=== PATIENT | female | born 1960 | race Caucasian/White ===

== ENCOUNTER → 2020-08-10 11:42 | Outpatient (BNVA) | payer OTHER, SELFPAY | PROVIDERS: Family Provider Nurse Practitioner; Visit Provider Specialist | DX: G43.709 Chronic migraine without aura, not intractable, without status migrainosus (principal) | CPT/HCPCS: 99204 ==

== ENCOUNTER 2020-08-10 13:16 | Outpatient (CLI) | payer OTHER, SELFPAY ==
[2020-08-10 14:14] LABS: C Reactive Protein 2.1 mg/L (0.0-4.9)
[2020-08-10 15:12] LABS: Erythrocyte Sedimentation Rate 40 mm/hr (0-15)
== END 2020-08-10 13:17 | disposition home or self-care (01) ==
LOC: LAB 13:19
PROVIDERS: Family Provider Nurse Practitioner; Visit Provider Specialist
DX: G43.709 Chronic migraine without aura, not intractable, without status migrainosus (principal)
CPT/HCPCS: 85651; 86140

== ENCOUNTER → 2020-09-05 18:31 | Outpatient (BNVA) | payer OTHER, SELFPAY | PROVIDERS: Family Provider Nurse Practitioner; Visit Provider Surgery | DX: G43.709 Chronic migraine without aura, not intractable, without status migrainosus (principal) | CPT/HCPCS: 87635 ==

== ENCOUNTER 2020-09-11 07:13 | Day surgery (SDC) | payer OTHER, SELFPAY ==
[2020-09-08 16:36] VITALS: BMI 30.6
[2020-09-11 07:34] VITALS: BP 161/113; PULSE 88; RESP 20; TEMP 36.8; O2SAT 96
--- NOTE | 2020-09-11 07:49 | W.PM.OPSUD ---
Surgery/Procedure H&P Update DATE OF PROCEDURE: September 11, 2020 DATE H&P PERFORMED: 09/04/20 H&P UPDATE INFORMATION: I have reviewed H&P completed within last 30 days, I have examined patient prior to procedure and No changes to prior documentation PREOP DIAGNOSIS: Temporal arteritis PLANNED PROCEDURE: Operation Date: 09/11/20 08:50 Proposed Procedures p Temporal Artery Biopsy 52961 G43.709(Left) - Wilian Arredondo MD
[2020-09-11] MEDS: sodium chloride 0.9% 1,000 ML 30 ML IV (07:55)
[2020-09-11 08:09] VITALS: BP 151/86; PULSE 78; RESP 18; O2SAT 94
--- NOTE | 2020-09-11 08:49 | ANES.PREANE2 ---
Pre-Anesthetic Assessment Pre-Anesthetic Assessment: Height/Weight: Height 1.64 m Weight 82.1 kg Temp Pulse Resp BP Pulse Ox 98.3 F 78 18 151/86 94 09/11/20 07:34 09/11/20 08:09 09/11/20 08:09 09/11/20 08:09 09/11/20 08:09 Preop Diagnosis: Temporal arteritis Proposed Procedure: Operation Date: 09/11/20 08:50 Proposed Procedures p Temporal Artery Biopsy 33858 G43.709(Left) - Wilian Arredondo MD Was Beta Lisa taken within 24 hours: N/A Last intake: Intake Last Liquid Date 09/10/20 Last Liquid Time 20:00 Last Solid Date 09/10/20 Last Solid Time 20:00 Social: Social History: No alcohol and No tobacco Comment: h/o smoking Exam: Pre-Anes Outpt Exam: alert, oriented x 3, clear to auscultation bilaterally and regular rate & rhythm Airway: Submandibular: WNL Cervical ROM: WNL MP: 2 Dentition: Partials Pulmonary: Pulmonary: COPD CV/HEM: CV/HEM: HTN Comments: Poorly controlled HTN : : None reported Hepatic: Hepatic: None reported GI: GI: None reported Metabolic: Metabolic: Morbid obesity Musc/skel: Musc/skel: None reported Neuropsych: Neuropsych: MENDOZA Anesthetic Plan: ASA status: 3 Anesthesia: MAC Risk of > 500 ml blood loss (7ml/kg in children): No Meds/Allergies Current Medications: Current Medications Generic Name Dose Route Start Last Admin Trade Name Freq PRN Reason Stop Dose Admin Sodium Chloride 1,000 mls @ 30 ml s/hr 09/11/20 07:30 09/11/20 07:55 Sodium Chloride 0.9% IV 09/12/20 07:29 30 mls/hr .Q24H BREANA Administration PFSH Anesthesia PFSH: Medical History GERD (gastroesophageal reflux disease) Hypertension Surgical History H/O abdominoplasty H/O colonoscopy 2017 H/O esophagogastroduodenoscopy yrs ago H/O lumpectomy left breast History of appendectomy History of mandibular surgery Hx of tubal ligation Family History Mother Bleeding disorder hemophillia CAD (coronary artery disease) Father Cancer pancreatic Other Hypertension Denies family history of Anesthesia complication Social History Smoking and tobacco status: never smoked Alcohol intake: never Household members: family Marital status: Single Current occupational status: disabled History of recent travel: No Data Anesthesia Cardiac Studies: No Data to Display
[2020-09-11] MEDS: lidocaine 1% INJ 20 mL INJECTION (09:58)
[2020-09-11 10:15] VITALS: BP 149/75; PULSE 81; RESP 16; TEMP 36.1; O2SAT 97
[2020-09-11 11:00] VITALS: BP 150/96; PULSE 70; RESP 18; TEMP 36.2; O2SAT 97
--- NOTE | 2020-09-11 11:35 | ANE.PACU2 ---
Inpatient post-anesthesia follow up: Airway intact: Yes Vital signs: Temperature 97.2 F Pulse Rate 70 Respiratory Rate 18 Blood Pressure 150/96 Pulse Oximetry 97 Oxygen Delivery Me thod Room Air Oxygen Flow Rate Fraction of Inspir ed Oxygen Hydration adequate: Yes Nausea and vomiting: No Pain level: 1 Mental status: Baseline
--- NOTE | 2020-09-11 13:05 | PM.OP ---
Operative Report Date of procedure: September 11, 2020 Pre-op Diagnosis: Left temporal headache with visual disturbances Post-op diagnosis: same Procedure Done: Left superficial temporal artery biopsy Specimens removed/disposition: Left superficial temporal artery Surgeon: Wilian Arredondo Anesthesia: MAC Condition: stable Disposition: PACU Procedure: The patient was taken to the operating room and the left temporal artery was marked using a Doppler and the hair overlying the markings were clipped. 5 mL of 1% lidocaine with 0.5% Marcaine was infiltrated around this area. Using a 15 blade the skin and subcutaneous tissue was divided until the temporoparietal fascia was identified. The temporoparietal fascia was opened using iris scissors and about a 3 cm segment of temporal artery was skeletonized. Small vascular clips were applied proximally and distally and the artery was divided and sent to pathology. Hemostasis ensured, subcutis tissue approximate using running 3-0 Vicryl suture and skin was closed using running subcuticular 4-0 Monocryl suture and surgical glue.
== END 2020-09-11 11:20 | disposition home or self-care (01) ==
PROVIDERS: Visit Provider Surgery
PROC: (CPT 37609; principal; 2020-09-11 08:50)
DX: G43.709 Chronic migraine without aura, not intractable, without status migrainosus (principal); J44.9 Chronic obstructive pulmonary disease, unspecified; I10 Essential (primary) hypertension; E66.01 Morbid (severe) obesity due to excess calories; Z68.30 Body mass index [BMI] 30.0-30.9, adult; K21.9 Gastro-esophageal reflux disease without esophagitis
CPT/HCPCS: 37609; 12345; J2250; J2405; J2704; J3010; J3490; J7030

== ENCOUNTER 2021-05-30 13:30 | Emergency (ER) | payer OTHER, SELFPAY ==
--- NOTE | 2021-05-30 13:37 | XR_ITS ---
WS: [id number] Portable AP upright chest, 05/30/2021 Clinical Data: chest pain Comparison: None. Findings: No nodules, masses or effusions are seen. The heart is normal. The pulmonary vascularity is not increased. No pneumonia or pneumothorax is seen. Dental implants are noted in the mandible. XR/XR chest 1V portable [id number] Impression: Negative chest.
--- NOTE | 2021-05-30 13:37 | ECG_ITS ---
[facility] Test Date: 2021-05-30 Pat Name: Annie Oreilly Department: Room: Gender: Female Prompt Care Rn: : 1960 Requested By: Roselyn Randhawa Order Number: [id number] Gemini MD: Ashley Sawyer M.D. Measurements Intervals [place] Rate: 91 P: 15 [place]: 156 QRS: 15 QRSD: 84 T: -1 QT: 359 QTc: 442 Interpretive Statements SINUS RHYTHM NONSPECIFIC ST & T-WAVE ABNORMALITY Compared to ECG 05/30/2021 15:03:18 No significant changes Electronically Signed On 05-31-2021 8:57:14 CDT by Ashley Sawyer M.D. [id number]
[2021-05-30 15:11] VITALS: PULSE 90; RESP 20; TEMP 36.7; O2SAT 97
[2021-05-30 15:15] VITALS: BP 130/92; PULSE 92; RESP 18; TEMP 37; O2SAT 99
--- NOTE | 2021-05-30 15:37 | ECG_ITS ---
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 Measurements Intervals [place] Rate: 87 P: 1 [place]: 159 QRS: 12 QRSD: 85 T: -9 QT: 352 QTc: 425 Interpretive Statements SINUS RHYTHM NONSPECIFIC T-WAVE ABNORMALITY No previous ECG available for comparison Electronically Signed On 05-31-2021 9:30:12 CDT by Ashley Sawyer M.D. [email or web address].[employer]/store/NU/[id number] f
--- NOTE | 2021-05-30 17:25 | W.ED.CHESTPA ---
HPI - Chest Pain General: Chief Complaint: Chest Pain Stated Complaint: CP, CAME FROM BAM INFUSION Time Seen by Provider: 05/30/21 17:25 PFSH ED PFSH: Medical History GERD (gastroesophageal reflux disease) Hypertension Surgical History (Updated 09/11/20 @ 09:08 by Wilian Arredondo MD) H/O abdominoplasty H/O colonoscopy 2017 H/O esophagogastroduodenoscopy yrs ago H/O lumpectomy left breast History of appendectomy History of mandibular surgery History of temporal artery biopsy (09/11/20) left Hx of tubal ligation Family History Mother Bleeding disorder hemophillia CAD (coronary artery disease) Father Cancer pancreatic Other Hypertension Denies family history of Anesthesia complication Social History Smoking and tobacco status: never smoked Alcohol intake: never Household members: family Marital status: Single Current occupational status: disabled History of recent travel: No Course Vital Signs: Vital signs: Vital Signs Temperature 98.1 F 05/30/21 15:11 Pulse Rate 90 05/30/21 15:11 Respiratory Rate 20 H 05/30/21 15:11 Pulse Oximetry 97 05/30/21 15:11 Discharge Plan Discharge Prescriptions: No Action topiramate [Topamax] 100 mg tablet 100 mg PO DAILY Qty: 90 RF: 0 omeprazole 20 mg capsule,delayed release(DR/EC) 20 mg PO DAILY RF: 0 alendronate 10 mg tablet 10 mg PO DAILY RF: 0 benztropine 2 mg tablet 2 mg PO BID RF: 0 docusate sodium 50 mg capsule 50 mg PO BID RF: 0 olanzapine [Zyprexa] 20 mg tablet 20 mg PO DAILY RF: 0 atorvastatin 40 mg tablet 20 mg PO DAILY RF: 0 ondansetron HCl 4 mg tablet See Rx Instructions .ROUTE .COMPLEX RF: 0 losartan 25 mg tablet 25 mg PO DAILY RF: 0 paroxetine HCl [Paxil] 40 mg tablet 40 mg PO DAILY RF: 0 Coding Level of Care Code ED Assistant Property Manager for Halle Ibrahim
[2021-05-30 17:45] VITALS: BP 130/92; PULSE 93; RESP 19; O2SAT 95
[2021-05-30 18:00] VITALS: BP 130/92; PULSE 92; RESP 19; O2SAT 95
--- NOTE | 2021-05-30 18:18 | W.ED.CHESTPA ---
HPI - Chest Pain General: Chief Complaint: Chest Pain Stated Complaint: CP, CAME FROM BAM INFUSION Time Seen by Provider: 05/30/21 17:25 Source: patient Mode of arrival: ambulatory Limitations: no limitations History of Present Illness: HPI narrative: 60-year-old female states she was diagnosed with Covid on Friday. States that today she has been having some chest pains been sharp in nature and pressure pain at times. She states that she believes is due to Covid was going to get her bam infusion they sent her here for the chest pain. She denies any fever. Denies any worsening proving factors. States pain is currently 2 out of 10. No history of heart disease. Patient is not hypoxic and in no distress Associated symptoms: Deny abdominal pain, dyspnea, fever(s), nausea or vomiting Review of Systems Const: Denies: fever(s), chills, body aches or change in appetite Eyes: Denies: blurry vision or eye discomfort ENMT: Denies: throat pain or dental pain Card: Reports: chest pain Resp: Denies: dyspnea GI: Denies: abdominal pain, nausea, vomiting or diarrhea : Denies: dysuria Musc: Denies: neck pain or back pain Skin/Breast: Denies: rash Neuro: Denies: headache(s) Psych: Denies: depression Ronaldo/Lymph: Denies: easy bruising All/Imm: Denies: urticaria PFSH ED PFSH: Medical History GERD (gastroesophageal reflux disease) Hypertension Surgical History H/O abdominoplasty H/O colonoscopy 2018 H/O esophagogastroduodenoscopy yrs ago H/O lumpectomy left breast History of appendectomy History of mandibular surgery History of temporal artery biopsy (09/11/20) left Hx of tubal ligation Family History Mother Bleeding disorder hemophillia CAD (coronary artery disease) Father Cancer pancreatic Other Hypertension Denies family history of Anesthesia complication Social History Smoking and tobacco status: never smoked Alcohol intake: never Household members: family Marital status: Single Current occupational status: disabled History of recent travel: No Physical Exam Const: COMMON NORMALS: no acute distress, patient oriented x3 and healthy appearing HENMT: COMMON NORMALS: normocephalic and atraumatic HEAD & SCALP: normocephalic and atraumatic Eye: COMMON NORMALS: Equal, round and reactive pupils present and EOMs intact bilaterally PUPIL: Yes Equal, round and reactive pupils present Neck/C-Spine: COMMON NORMALS: full ROM and supple Chest: COMMONS NORMALS: normal inspection of the chest and normal palpation of entire chest wall Resp: COMMON NORMALS: normal respiratory effort, No retractions, No use of accessory muscles and clear to auscultation bilaterally AUSCULTATION: clear to auscultation bilaterally Cardio: COMMON NORMALS: regular rate, regular rhythm and No murmurs present (Cardio) RATE: regular rate RHYTHM: regular rhythm GI: COMMON NORMALS: Normal to inspection, nondistended, normoactive bowel sounds present, Soft to palpation, non-tender and no masses PALPATION: Yes Soft to palpation Extremity: COMMON NORMALS: normal to inspection and full ROM Neuro: COMMON NORMALS: patient oriented x3, moves all extremities and no focal motor deficits Psych: COMMON NORMALS: mental status grossly normal, Normal thought process present and cooperative THOUGHT PROCESS: Normal thought process present Skin: COMMON NORMALS: no rashes or lesions noted and no wounds GENERAL SKIN EXAM: no rashes or lesions noted Course Vital Signs: Vital signs: Vital Signs Temperature 98.6 F 05/30/21 15:15 Pulse Rate 83 05/30/21 20:52 Respiratory Rate 16 05/30/21 20:52 Blood Pressure 131/98 05/30/21 20:52 Pulse Oximetry 92 05/30/21 20:52 MDM - Chest Pain MDM Narrative: Medical decision making narrative: Presents here chest pain is atypical in nature likely from her Covid. She has no signs of pulmonary embolism and initial troponin repeat are normal. She feels fine here and I feel she is stable for discharge. She is to follow-up with her PCP and return if worsening. She understands agrees to plan. Lab Data: Labs: Lab Results 05/30/21 05/30/21 05/30/21 Range/Units 18:01 18:01 18:01 WBC 7.6 (4.0-10.0) 10^3/ uL RBC 5.14 (4.1-5.3) 10^6/u L Hgb 14.1 (11.5-15.3) g/dL Hct 44.8 (37.0-47.0) % MCV 87.2 (81-99) fl MCH 27.4 L (28.0-34.0) pg MCHC 31.5 (30.0-36.0) g/dL RDW 13.7 (12.1-15.1) % Plt Count 233 (130-400) 10^3/c mm MPV 10.4 (7.4-10.4) fL Neut % (Auto) 62.1 % Lymph % (Auto) 28.0 % [place] % (Auto) 5.1 % Eos % (Auto) 3.3 % Baso % (Auto) 1.1 % Neut # (Auto) 4.72 (1.8-7.7) 10^3/u L Lymph # (Auto) 2.1 (0.8-4.8) 10^3/u L [place] # (Auto) 0.4 (0.2-0.9) 10^3/u L Eos # (Auto) 0.3 (0.0-0.8) 10^3/u L Baso # (Auto) 0.1 (0.0-0.1) 10^3/u L Nucleated RBC % (a uto) 0 % Nucleated RBCs # 0.0 /100WBC Sodium 144 (136-145) mmol/L Potassium 3.6 (3.5-5.1) mmol/L Chloride 103 (98-107) mmol/L Carbon Dioxide 25 (22-29) mmol/L Anion Gap 19.6 H (5-19) BUN 5 L (8-23) mg/dL Creatinine 0.6 (0.5-0.9) mg/dL GFR Calculation 101.6 (90-130) mL/min Glucose 100 (65-115) mg/dL Calculated Osmolal ity 295 (285-295) mOsm/k g Calcium 9.1 (8.5-10.5) mg/dL Total Bilirubin 0.2 (0.15-1.2) mg/dL AST 14 (0-32) U/L ALT 10 (0-33) U/L Alkaline Phosphata se 88 (35-105) IU/L Troponin T Baselin e 6 (0-10) ng/L Troponin T 120 Min [place] (0-10) ng/L Delta Troponin T (0-10) ABS# Total Protein 7.7 (6.6-8.7) g/dL Albumin 4.5 (3.5-5.2) g/dL Globulin 3.2 (1.3-4.6) g/dL 05/30/21 Range/Units 20:03 WBC (4.0-10.0) 10^3/ uL RBC (4.1-5.3) 10^6/u L Hgb (11.5-15.3) g/dL Hct (37.0-47.0) % MCV (81-99) fl MCH (28.0-34.0) pg MCHC (30.0-36.0) g/dL RDW (12.1-15.1) % Plt Count (130-400) 10^3/c mm MPV (7.4-10.4) fL Neut % (Auto) % Lymph % (Auto) % [place] % (Auto) % Eos % (Auto) % Baso % (Auto) % Neut # (Auto) (1.8-7.7) 10^3/u L Lymph # (Auto) (0.8-4.8) 10^3/u L [place] # (Auto) (0.2-0.9) 10^3/u L Eos # (Auto) (0.0-0.8) 10^3/u L Baso # (Auto) (0.0-0.1) 10^3/u L Nucleated RBC % (a uto) % Nucleated RBCs # /100WBC Sodium (136-145) mmol/L Potassium (3.5-5.1) mmol/L Chloride (98-107) mmol/L Carbon Dioxide (22-29) mmol/L Anion Gap (5-19) BUN (8-23) mg/dL Creatinine (0.5-0.9) mg/dL GFR Calculation (90-130) mL/min Glucose (65-115) mg/dL Calculated Osmolal ity (285-295) mOsm/k g Calcium (8.5-10.5) mg/dL Total Bilirubin (0.15-1.2) mg/dL AST (0-32) U/L ALT (0-33) U/L Alkaline Phosphata se (35-105) IU/L Troponin T Baselin e (0-10) ng/L Troponin T 120 Min [place] 6.00 (0-10) ng/L Delta Troponin T 0 (0-10) ABS# Total Protein (6.6-8.7) g/dL Albumin (3.5-5.2) g/dL Globulin (1.3-4.6) g/dL Imaging Data^: CXR: Attestation: I personally reviewed and interpreted this imaging study as follows: Radiologist's impression: [address] [address] XRay Report Signed Patient: Annie Oreilly Unit #: [id number] : 1960 Age/Sex: 60 / F ADM Date: 05/30/21 Loc: ER Room/Bed: Attending Dr: Ordering Provider/Ordering MD: Roselyn Randhawa Date of Service: 05/30/21 Procedure(s): XR chest 1V portable [id number] Accession Number(s): [id number] Report Number: [id number] WS: [id number] Portable AP upright chest, 05/30/2021 Clinical Data: chest pain Comparison: None. Findings: No nodules, masses or effusions are seen. The heart is normal. The pulmonary vascularity is not increased. No pneumonia or pneumothorax is seen. Dental implants are noted in the mandible. XR/XR chest 1V portable [id number] Impression: Negative chest. Dictated By: Emily Blackwell MD Signed By: Emily Blackwell MD Signed Date/Time: 05/30/21 1550 DD/ 1549 EKG Data^: EKG 1: Attestation: I personally reviewed and interpreted this EKG as follows: EKG interpretation date: 05/30/21 EKG interpretation time: 15:03 Interpretation: nsr hr [address] or t wave abnormalities qrs 85 qtc 397 EKG 2: Attestation: I personally reviewed and interpreted this EKG as follows: EKG interpretation date: 05/30/21 EKG interpretation time: 20:08 Interpretation: nsr hr [address] or t wave abnormalities qrs 84 qtc 411 Discharge Plan Discharge Patient Disposition: Home Clinical Impression: Chest pain Qualifiers: Chest pain type: unspecified Qualified Code(s): R07.9 - Chest pain, unspecified Condition: Stable Prescriptions: No Action omeprazole 20 mg capsule,delayed release(DR/EC) 20 mg PO DAILY RF: 0 alendronate 10 mg tablet 10 mg PO DAILY RF: 0 benztropine 2 mg tablet 2 mg PO BID RF: 0 docusate sodium 50 mg capsule 100 mg PO BID RF: 0 olanzapine [Zyprexa] 20 mg tablet 20 mg PO DAILY RF: 0 atorvastatin 40 mg tablet 40 mg PO BID RF: 0 ondansetron HCl 4 mg tablet 4 mg PO Q8H PRN (Reason: NAUSEA/VOMITING) RF: 0 losartan 25 mg tablet 25 mg PO DAILY RF: 0 paroxetine HCl [Paxil] 40 mg tablet 40 mg PO DAILY RF: 0 Super C Complex 500-500 mg Tablet 1 tab PO DAILY RF: 0 Cold and Flu Relief Plus (D/N) 6.25 mg-5 mg-10 mg-325 mg (nt) Capsule, Sequential 1 cap PO Q6H PRN (Reason: COLD/FLU SYMPTOMS) RF: 0 Topamax 100 mg tablet 200 mg PO DAILY RF: 0 Discharge Orders: Discharge ED (Routine); Ordered 05/30/21 Ordered By: Alise Thomas Referrals: Arnulfo Valencia MD [Primary Care Provider] - 1-3 days Discharge Diet: Advance as tolerated Discharge Activity: Resume usual activity Patient Instructions: Chest Pain (ED) Coding Level of Care Code ED Warehouse Unloader for Chg Fwd Exam Comprehensive
[2021-05-30 18:22] LABS: Basophils # 0.1 10^3/uL (0.0-0.1); Basophils % 1.1 %; Eosinophils # 0.3 10^3/uL (0.0-0.8); Eosinophils % 3.3 %; Hematocrit 44.8 % (37.0-47.0); Hemoglobin 14.1 g/dL (11.5-15.3); Lymphocytes # 2.1 10^3/uL (0.8-4.8); Mean Corpuscular HGB Conc 31.5 g/dL (30.0-36.0); Mean Corpuscular Hemoglobin 27.4 pg (28.0-34.0); Mean Corpuscular Volume 87.2 fl (81-99); Mean Platelet Volume 10.4 fL (7.4-10.4); Monocytes # 0.4 10^3/uL (0.2-0.9); Monocytes % 5.1 %; Neutrophils # 4.72 10^3/uL (1.8-7.7); Neutrophils % 62.1 %; Nucleated Red Blood Cells % 0 %; Platelet Count 233 10^3/cmm (130-400); Red Blood Count 5.14 10^6/uL (4.1-5.3); Red Cell Distribution Width 13.7 % (12.1-15.1); White Blood Count 7.6 10^3/uL (4.0-10.0)
[2021-05-30 18:47] LABS: Troponin(5th) Baseline 6 ng/L (0-10)
[2021-05-30 18:53] LABS: Alanine Aminotransferase 10 U/L (0-33); Albumin Level 4.5 g/dL (3.5-5.2); Alkaline Phosphatase 88 IU/L (35-105); Anion Gap 19.6 (5-19); Aspartate Amino Transferase 14 U/L (0-32); Blood Urea Nitrogen 5 mg/dL (8-23); Calcium 9.1 mg/dL (8.5-10.5); Carbon Dioxide 25 mmol/L (22-29); Chloride 103 mmol/L (98-107); Globulin 3.2 g/dL (1.3-4.6); Glomerular Filtration Rate 101.6 mL/min (90-130); Glucose 100 mg/dL (65-115); Osmolality Calculated 295 mOsm/kg (285-295); Potassium 3.6 mmol/L (3.5-5.1); Sodium 144 mmol/L (136-145); Total Bilirubin 0.2 mg/dL (0.15-1.2); Total Protein 7.7 g/dL (6.6-8.7)
--- NOTE | 2021-05-30 19:37 | ECG_ITS ---
[facility] Test Date: 2021-05-30 Pat Name: Annie Oreilly Department: Room: Gender: Female Tire Man: : 1960 Requested By: Roselyn Randhawa Order Number: [id number] Gemini MD: Ashley Sawyer M.D. Measurements Intervals [place] Rate: 85 P: 26 [place]: 158 QRS: 29 QRSD: 84 T: 35 QT: 369 QTc: 440 Interpretive Statements SINUS RHYTHM NONSPECIFIC ST & T-WAVE ABNORMALITY Compared to ECG 05/30/2021 18:03:10 No significant changes Electronically Signed On 05-31-2021 9:09:40 CDT by Ashley Sawyer M.D. [email or web address]/store/[id number]
[2021-05-30 20:52] VITALS: BP 131/98; PULSE 83; RESP 16; O2SAT 92
[2021-05-30 20:52] LABS: Troponin 5 2HR Delta 0 ABS# (0-10)
[2021-05-30 21:55] VITALS: O2SAT 93
== END 2021-05-30 21:25 | disposition home or self-care (01) ==
PROVIDERS: Physician Assistant; Emergency Provider Emergency Medicine
DX: R07.9 Chest pain, unspecified (principal); I10 Essential (primary) hypertension
CPT/HCPCS: 71045; 80053; 84484; 85025; 93005; 99284

== ENCOUNTER 2021-07-09 16:26 | Inpatient (IN) | payer OTHER, SELFPAY ==
[2021-07-09 16:37] VITALS: BP 111/74; PULSE 97; RESP 22; TEMP 36.7; O2SAT 93; BMI 29.2
--- NOTE | 2021-07-09 17:32 | XRR_ITS ---
PROCEDURE INFORMATION: Exam: XR Chest Exam date and time: 07/09/2021 5:32 PM Age: 60 years old Clinical indication: Shortness of breath; Additional info: SOB TECHNIQUE: Imaging protocol: XR of the chest. Views: 1 view. COMPARISON: CR XR chest 1V portable [id number] 05/30/2021 3:14 PM FINDINGS: Lungs: Appearance of ill-defined opacities in the peripheral lung bases, left greater than right. Pleural spaces: Unremarkable. No pleural effusion. No pneumothorax. Heart/Mediastinum: Unremarkable. No cardiomegaly. Bones/joints: Unremarkable. XR/XR chest 1V portable [id number] IMPRESSION: Appearance of ill-defined opacities in the peripheral lung bases, left greater than right. Possibilities include atelectasis, artifact from overlying soft tissues, or potentially developing consolidations/multifocal pneumonia in the appropriate clinical setting.. Radiation Dose CTDIVOL = (mGy): DLP = (mGy-cm)
--- NOTE | 2021-07-09 17:37 | PC.NURSE ---
while at bedside provider at bedside pt is in nad.
--- NOTE | 2021-07-09 17:43 | ED_ITS ---
HPI - SOB/Dyspnea General: Chief Complaint: COVID symptoms Stated Complaint: sob, cough, fever, congestion Time Seen by Provider: 07/09/21 17:34 Source: patient Mode of arrival: wheelchair Limitations: no limitations History of Present Illness: HPI Narrative: Patient is a 60-year-old female who presents to ED today stating I have COVID . After further clarification she tells me she tested positive for COVID at the beginning of May and feels like she has yet to improve. She states she believed she was getting better but over the past few weeks has continued to experience fevers of up to 102, body aches, fatigue/weakness, productive cough, SOB, and intermittent chest pains. Denies abdominal pain, N/V/D, urinary symptoms, MENDOZA, or rash. MD elicited complaint: shortness of breath ( COVID ) Pertinent past history: other (COVID) Onset (ago): week(s) Timing: constant Severity: moderate Associated symptoms: Reports chest congestion, chest pain (occasional ) and fever(s); Deny abdominal pain, dizziness, extremity pain, hemoptysis, lightheadedness, nausea, orthopnea, palpitations, syncope or vomiting Treatment prior to arrival: none Related Data: Home oxygen amount: none Review of Systems Const: Reports: fever(s), body aches, fatigue and malaise; Denies: chills Eyes: Denies: change in vision, blurry vision, photophobia, floaters or seeing flashes ENMT: Reports: hoarseness; Denies: throat pain, odynophagia, ear or mastoid pain, nasal discharge, nasal congestion, epistaxis, post nasal drip or sinus pain Card: Reports: chest pain (occasional ) and dyspnea on exertion; Denies: palpitations, irregular heart rhythm, edema, swelling of feet/ankles, lightheadedness, syncope, pre-syncope, orthopnea or leg pain with exertion Resp: Reports: dyspnea, productive cough, change in phlegm color and chest congestion; Denies: wheezing, stridor or hemoptysis GI: Denies: abdominal pain, nausea, vomiting or diarrhea : Denies: flank pain, difficulty voiding, dysuria, urinary frequency, urinary urgency or hematuria Musc: Denies: neck pain, back pain, extremity pain, joint pain, joint swelling, joint redness or limited range of motion Skin/Breast: Denies: rash Neuro: Denies: headache(s), numbness in extremities, weakness in extremities, sensory changes, lack of coordination, difficulty walking, frequent falls, dizziness, confusion or behavioral changes PFSH ED PFSH: Medical History GERD (gastroesophageal reflux disease) Hypertension Surgical History H/O abdominoplasty H/O colonoscopy 2017 H/O esophagogastroduodenoscopy yrs ago H/O lumpectomy left breast History of appendectomy History of mandibular surgery History of temporal artery biopsy (09/11/20) left Hx of tubal ligation Family History Mother Bleeding disorder hemophillia CAD (coronary artery disease) Father Cancer pancreatic Other Hypertension Denies family history of Anesthesia complication Social History Smoking and tobacco status: never smoked Alcohol intake: never Household members: family Marital status: Single Current occupational status: disabled History of recent travel: No Physical Exam Const: COMMON NORMALS: no acute distress, patient oriented x3, no limitations and alert GENERAL APPEARANCE: cooperative NUTRITIONAL APPEARANCE: overweight ORIENTATION/CONSCIOUSNESS: Yes awake, Yes oriented to person, Yes oriented to place and Yes oriented to time HENMT: COMMON NORMALS: normocephalic and atraumatic HEAD & SCALP: normal to inspection, normocephalic and atraumatic FACE & SINUS: normal facial exam MOUTH: Normal oral and palatal mucosa present THROAT: posterior oropharynx normal, tonsils normal and uvula midline OTHER: hoarseness Neck/C-Spine: COMMON NORMALS: full ROM, no lymphadenopathy and no meningeal signs Resp: COMMON NORMALS: normal respiratory effort AUSCULTATION: rhonchi throughout Cardio: COMMON NORMALS: regular rate and regular rhythm RATE: regular rate RHYTHM: regular rhythm GI: COMMON NORMALS: Normal to inspection, nondistended, normoactive bowel sounds present, Soft to palpation, non-tender, No hepatosplenomegaly present and no masses INSPECTION: Yes normal to inspection AUSCULTATION: Yes normoactive bowel sounds PALPATION: Yes Soft to palpation and Yes No hepatosplenomegaly present : COMMON NORMALS: Yes no CVA tenderness BLADDER/KIDNEY EXAM: Yes no CVA tenderness Back/Pelvis: COMMON NORMALS: no CVA tenderness Extremity: COMMON NORMALS: normal to inspection, full ROM, capillary refill normal, no joint enlargement, no clubbing, cyanosis or edema, no calf tenderness and no pedal edema Neuro: CATALINA COMA SCALE: document GCS findings [place] coma scale eye opening: Spontaneous Catalina coma scale verbal response: Orientated Catalina coma scale motor response: Obey commands Catalina coma scale total score: 15 COMMON NORMALS: patient oriented x3, CN's II-XII intact bilaterally, moves all extremities, no focal motor deficits and no sensory deficits noted SENSORIUM/ORIENTATION: Yes alert, Yes oriented to person, Yes oriented to place and Yes oriented to time MENINGEAL SIGNS: Yes no meningeal signs Skin: COMMON NORMALS: no rashes or lesions noted GENERAL SKIN EXAM: no rashes or lesions noted TRAUMA: no lacerations or abrasions Course Consultations: Consultation #1: Dr. Andres-recommends CTA, will admit Vital Signs: Vital signs: Vital Signs Temperature 98.0 F 07/09/21 16:37 Pulse Rate 86 07/09/21 19:56 Respiratory Rate 22 H 07/09/21 19:56 Blood Pressure 117/78 07/09/21 19:56 Pulse Oximetry 91 07/09/21 19:56 MDM - SOB/Dyspnea MDM Narrative: Medical decision making narrative: Patient CXR showing multifocal pneumonia mainly in her lung bases. She is hypoxic on room air at 88 to 91%. She has a normal white count. Procalcitonin is elevated at 1.4. She is hypokalemic at 2.9. Mag is pending. Spoke to Dr. Thomas who agrees with need for admission. Spoke to Dr. Andres who recommends CTA and will admit. Positive COVID results were verified (positive on May 23). She never received BAM infusion. Lab Data: Labs: Lab Results 07/09/21 07/09/21 07/09/21 18:06 18:06 18:18 WBC 9.7 10^3/uL 10^3/ uL (4.0-10.0) RBC 4.67 10^6/uL 10^6 /uL (4.1-5.3) Hgb 13.0 g/dL g/dL (11.5-15.3) Hct 39.5 % % (37.0-47.0) MCV 84.6 fl fl (81-99) MCH 27.8 pg L pg (28.0-34.0) MCHC 32.9 g/dL g/dL (30.0-36.0) RDW 14.4 % % (12.1-15.1) Plt Count 241 10^3/cmm 10^3 /cmm (130-400) MPV 11.6 fL H fL (7.4-10.4) Neut % (Auto) 79.1 % % Lymph % (Auto) 9.6 % % Greer % (Auto) 9.9 % % Eos % (Auto) 0.1 % % Baso % (Auto) 0.5 % % Neut # (Auto) 7.66 10^3/uL 10^3 /uL (1.8-7.7) Lymph # (Auto) 0.9 10^3/uL 10^3/ uL (0.8-4.8) Greer # (Auto) 1.0 10^3/uL H 10^ 3/uL (0.2-0.9) Eos # (Auto) 0.0 10^3/uL 10^3/ uL (0.0-0.8) Baso # (Auto) 0.1 10^3/uL 10^3/ uL (0.0-0.1) Nucleated RBC % (a uto) 0 % % Nucleated RBCs # 0.0 /100WBC /100W BC Sodium 135 mmol/L L mmol /L (136-145) Potassium 2.9 mmol/L L mmol /L (3.5-5.1) Chloride 96 mmol/L L mmol/ L (98-107) Carbon Dioxide 22 mmol/L mmol/L (22-29) Anion Gap 19.9 H (5-19) BUN 14 mg/dL mg/dL (8-23) Creatinine 0.8 mg/dL mg/dL (0.5-0.9) GFR Calculation 72.9 mL/min L mL/ min (90-130) Glucose 107 mg/dL mg/dL (65-115) Calculated Osmolal ity 281 mOsm/kg L mOs m/kg (285-295) Lactic Acid Calcium 9.0 mg/dL mg/dL (8.5-10.5) Total Bilirubin 0.5 mg/dL mg/dL (0.15-1.2) AST 19 U/L U/L (0-32) ALT 10 U/L U/L (0-33) Alkaline Phosphata se 105 IU/L IU/L (35-105) Total Protein 8.0 g/dL g/dL (6.6-8.7) Albumin 3.8 g/dL g/dL (3.5-5.2) Globulin 4.2 g/dL g/dL (1.3-4.6) Procalcitonin 1.40 ng/mL H ng/m L (0-0.5) Urine Color Yellow (Yellow) Urine Appearance Cloudy (CLEAR) Urine pH 6 (5-7) Ur Specific Gravit y 1.015 (1.005-1.030) Urine Protein Trace (Negative) Urine Glucose (UA) Norm (Normal) Urine Ketones Negative (Negative) Urine Blood 3+ H (Negative) Urine Nitrate Negative (Negative) Urine Bilirubin Neg (Negative) Urine Urobilinogen 1 mg/dL H mg/dL (Negative) Ur Leukocyte Ashwini ase 1+ H (Negative) Urine RBC Rare /hpf /hpf (0-2) Urine WBC 0-4 /hpf H /hpf (0-5) Ur Squamous Epith Cells 0-4 /hpf H /hpf (0-5) Amorphous Sediment Not Reportable Urine Bacteria 1+ /hpf H /hpf (NONE) Influenza Type A A g Influenza Type B A g SARS-CoV-2 Ag (Rap id) 07/09/21 07/09/21 07/09/21 18:38 18:40 19:42 WBC RBC Hgb Hct MCV MCH MCHC RDW Plt Count MPV Neut % (Auto) Lymph % (Auto) Greer % (Auto) Eos % (Auto) Baso % (Auto) Neut # (Auto) Lymph # (Auto) Greer # (Auto) Eos # (Auto) Baso # (Auto) Nucleated RBC % (a uto) Nucleated RBCs # Sodium Potassium Chloride Carbon Dioxide Anion Gap BUN Creatinine GFR Calculation Glucose Calculated Osmolal ity Lactic Acid 1.2 mmol/L mmol/L (0.5-2.2) Calcium Total Bilirubin AST ALT Alkaline Phosphata se Total Protein Albumin Globulin Procalcitonin Urine Color Urine Appearance Urine pH Ur Specific Gravit y Urine Protein Urine Glucose (UA) Urine Ketones Urine Blood Urine Nitrate Urine Bilirubin Urine Urobilinogen Ur Leukocyte Ashwini ase Urine RBC Urine WBC Ur Squamous Epith Cells Amorphous Sediment Urine Bacteria Influenza Type A A g Negative (Negative) Influenza Type B A g Negative (Negative) SARS-CoV-2 Ag (Rap id) Negative (Negative) Imaging Data^: CXR: Radiologist's impression: [address] [id number] ReportSigned Patient: Annie Oreilly LUnit #: [id number]: [id number]#:[id number]/Sex: 60 / FADM Date: 07/09/21Loc: ERRoom/Bed:Attending Dr: Ordering Provider/Ordering MD: Roselyn Randhawa Date of Service: 07/09/21 Procedure(s): XR chest 1V portable [id number] Accession Number(s): [id number] Report Number: [id number] PROCEDURE INFORMATION: Exam: XR Chest Exam date and time: 07/09/2021 5:32 PM Age: 60 years old Clinical indication: Shortness of breath; Additional info: SOB TECHNIQUE: Imaging protocol: XR of the chest. Views: 1 view. COMPARISON: CR XR chest 1V portable [id number] 05/30/2021 3:14 PM FINDINGS: Lungs: Appearance of ill-defined opacities in the peripheral lung bases, left greater than right. Pleural spaces: Unremarkable. No pleural effusion. No pneumothorax. Heart/Mediastinum: Unremarkable. No cardiomegaly. Bones/joints: Unremarkable. XR/XR chest 1V portable [id number] IMPRESSION: Appearance of ill-defined opacities in the peripheral lung bases, left greater than right. Possibilities include atelectasis, artifact from overlying soft tissues, or potentially developing consolidations/multifocal pneumonia in the appropriate clinical setting.. Radiation Dose CTDIVOL = (mGy): DLP = (mGy-cm) Dictated By:Diomedes Stafford DOSigned By:Diomedes Stafford DOSigned Date/Time:07/09/21 1812DD/ 31 Discharge Plan Discharge Patient Disposition: Admitted As Inpatient Clinical Impression: Multifocal pneumonia, Hypoxia Condition: Stable Coding Level of Care Code ED District Commercial Superintendent for Chg Fwd Exam Comprehensive
[2021-07-09 18:08] VITALS: BP 119/91; PULSE 88; RESP 20; O2SAT 90
[2021-07-09 18:31] LABS: Basophils # 0.1 10^3/uL (0.0-0.1); Basophils % 0.5 %; Eosinophils % 0.1 %; Hematocrit 39.5 % (37.0-47.0); Lymphocytes # 0.9 10^3/uL (0.8-4.8); Lymphocytes % 9.6 %; Mean Corpuscular HGB Conc 32.9 g/dL (30.0-36.0); Mean Corpuscular Hemoglobin 27.8 pg (28.0-34.0); Mean Corpuscular Volume 84.6 fl (81-99); Mean Platelet Volume 11.6 fL (7.4-10.4); Monocytes % 9.9 %; Neutrophils # 7.66 10^3/uL (1.8-7.7); Neutrophils % 79.1 %; Nucleated Red Blood Cells % 0 %; Platelet Count 241 10^3/cmm (130-400); Red Blood Count 4.67 10^6/uL (4.1-5.3); Red Cell Distribution Width 14.4 % (12.1-15.1); White Blood Count 9.7 10^3/uL (4.0-10.0)
[2021-07-09 18:47] LABS: Alanine Aminotransferase 10 U/L (0-33); Albumin Level 3.8 g/dL (3.5-5.2); Alkaline Phosphatase 105 IU/L (35-105); Anion Gap 19.9 (5-19); Aspartate Amino Transferase 19 U/L (0-32); Blood Urea Nitrogen 14 mg/dL (8-23); Carbon Dioxide 22 mmol/L (22-29); Chloride 96 mmol/L (98-107); Globulin 4.2 g/dL (1.3-4.6); Glomerular Filtration Rate 72.9 mL/min (90-130); Glucose 107 mg/dL (65-115); Osmolality Calculated 281 mOsm/kg (285-295); Sodium 135 mmol/L (136-145); Total Bilirubin 0.5 mg/dL (0.15-1.2)
[2021-07-09 18:50] LABS: Potassium 2.9 mmol/L (3.5-5.1)
[2021-07-09 18:57] LABS: Slide Review Slide Review Perform
--- NOTE | 2021-07-09 18:58 | PC.NURSE ---
report given to dara rios assumed care.
[2021-07-09 19:05] LABS: Add Urine Microscopic? YES; Bilirubin Urine Neg (Negative); Blood Urine 3+ (Negative); Glucose Urine UA Norm (Normal); Ketones Urine Negative (Negative); Leukocyte Esterase Urine 1+ (Negative); Nitrate Urine Negative (Negative); Protein Urine Trace (Negative); RBC Urine RARE /hpf (0-2); Specific Gravity, Urine 1.015 (1.005-1.030); Squamous Epithelial Cell Urine 0-4 /hpf (0-5); Urine Appearance Cloudy (CLEAR); Urine Color Yellow (Yellow); Urobilinogen Urine 1 mg/dL (Negative); WBC Urine 0-4 /hpf (0-5); pH Urine 6 (5-7)
[2021-07-09 19:06] LABS: Bacteria Urine 1+ /hpf
[2021-07-09 19:27] LABS: Influenza A by IFA Negative (Negative)
[2021-07-09 19:28] LABS: SARS Covid-2 Antigen Negative (Negative)
[2021-07-09 19:28] LABS: Influenza B by IFA Negative (Negative)
[2021-07-09] MEDS: potassium chloride ER 20 mEq Tablet 40 MEQ PO (19:50)
[2021-07-09 19:56] VITALS: BP 117/78; PULSE 86; RESP 22; O2SAT 91
[2021-07-09 20:10] LABS: Lactic Sepsis W/Reflex 1.2 mmol/L (0.5-2.2)
[2021-07-09] MEDS: levofloxacin-dextrose 5 % 500 MG/100 ML PREMIX 100 MG IV (20:13)
--- NOTE | 2021-07-09 20:13 | CTR_ITS ---
PROCEDURE INFORMATION: Exam: CTA Chest With Contrast Exam date and time: 07/09/2021 8:13 PM Age: 60 years old Clinical indication: Shortness of breath; Additional info: SOB post covid TECHNIQUE: Imaging protocol: Computed tomographic angiography of the chest with contrast. 3D rendering (Not supervised by radiologist): MIP and/or 3D reconstructed images were created by the technologist. Radiation optimization: All CT scans at this facility use at least one of these dose optimization techniques: automated exposure control; mA and/or kV adjustment per patient size (includes targeted exams where dose is matched to clinical indication); or iterative reconstruction. Contrast material: OMNI 350; Contrast volume: 69 ml; Contrast route: INTRAVENOUS (IV); COMPARISON: CR (CHEST, ) 07/09/2021 5:42 PM RADIATION DOSE METRICS: Total DLP (mGy-cm): 539.11 FINDINGS: Limitations: The study is limited due to patient respiratory motion. Pulmonary arteries: Pulmonary arteries are well opacified. Pulmonary arteries are normal in caliber. No filling defects are demonstrated. No evidence of pulmonary embolism. Aorta: Ascending aorta measures 3.7 cm in transverse diameter. No aortic aneurysm or dissection noted. Lungs: Nonspecific patchy airspace infiltrates are demonstrated in the inferior right upper lobe, the anteromedial right middle lobe, the lingula, and the bilateral lower lobes. Pleural spaces: No pneumothorax. No pleural effusion. Heart: No cardiomegaly. No pericardial effusion. Lymph nodes: Nonspecific mediastinal lymph nodes measuring up to 9 mm short axis. Bones/joints: Degenerative spine changes. No acute osseous abnormality. Soft tissues: Unremarkable as demonstrated. CT/CT angio chest PE protcl [id number] IMPRESSION: 1. The study is limited due to patient respiratory motion. 2. No evidence of pulmonary embolism. 3. No aortic aneurysm or dissection noted. 4. Nonspecific patchy airspace infiltrates are demonstrated in the inferior right upper lobe, the anteromedial right middle lobe, the lingula, and the bilateral lower lobes. Imaging features can be seen with COVID-19 pneumonia, though are nonspecific and can occur with a variety of infectious and noninfectious processes. (Reference: Raymond) REFERENCES: Raymond Chery et al., [employer] Society of [place] Expert Consensus Statement on Reporting Chest CT Findings Related to COVID-19. Endorsed by the Society of [employer]acic Radiology, the [employer], and [employer]NA. Published December 15, 2019. Radiation Dose CTDIVOL = (mGy): DLP = 539.11 (mGy-cm)
[2021-07-09] MEDS: iohexol 350 mg/mL 100 mL Btl IV (20:25)
[2021-07-09 20:40] LABS: Magnesium 1.5 mg/dL (1.7-2.3)
--- NOTE | 2021-07-09 21:39 | P.HP_ITS ---
Providers/Chief Complaint Admitting Physician: Ana Andres MD Primary Care Provider: Arnulfo Valencia MD Chief Complaint: sob, cough, fever, congestion History of Present Illness Annie Oreilly is a 60 year old female with recent history of COVID-19 May 23, 2021, plan for monoclonal antibody infusion, but ultimately could not obtain it as developed chest pain prior to infusion. Reportedly recovered without complications. Presents to the hospital now with complaints of 1 week of fever, increased cough, sputum production and difficulty breathing. She has a new oxygen requirement of 4 L/min via nasal cannula. No other complaints of dysuria, nausea vomiting diarrhea. Patient reports being constipated for 2 weeks, passing flatus. No abdominal pain or chest pain. CT of the chest performed upon admission negative for PE but showed bilateral scattered infiltrates concerning for multifocal pneumonia. Labs notable for neutrophilic predominance and smudge cells on peripheral smear, but WBC count otherwise within normal limits. Pro-Sheng elevated at 1.4. Review of past records show that patient has had a history of atypical headaches and visual disturbances for which she followed with neurology in August 2020, underwent a temporal artery biopsy however has not followed up since then. Per review of the pathology report, it appears that initially preliminary diagnosis was negative, however final diagnosis is listed as temporal arteritis. Patient states that between August and now she has had deterioration in her vision. She is unable to clearly see characters on TV. Review of Systems General: Reports: 10 or more systems reviewed and unremarkable except in HPI and below Const: Denies: fever(s), chills or body aches Eyes: Denies: change in vision, blurry vision or photophobia ENMT: Reports: hoarseness; Denies: throat pain, enlarged tonsils, odynophagia or nasal congestion Card: Denies: chest pain, palpitations, irregular heart rhythm, edema, swelling of feet/ankles, lightheadedness, pre-syncope, dyspnea on exertion or orthopnea Resp: Denies: dyspnea, productive cough, non-productive cough, wheezing, stridor, pain on inspiration, change in phlegm color, hemoptysis or chest congestion GI: Denies: abdominal pain, nausea, vomiting, hematemesis, coffee ground emesis, dysphagia, heartburn, diarrhea, constipation, GI cramping, change in stool character, hematochezia or melena : Denies: flank pain, difficulty voiding, dysuria, urinary frequency, urinary urgency, urinary hesitancy or hematuria Musc: Denies: neck pain, back pain, extremity pain, joint swelling, joint warm th or deformity Neuro: Denies: headache(s), numbness in extremities, weakness in extremities, sensory changes, difficulty walking, frequent falls, dizziness, vertigo, behavioral changes, Slurred speech present or seizure-like activity Psych: Denies: anxiety, depression, suicidal ideation or homicidal ideation Endo: Denies: polyuria, polydipsia, tired all the time, cold intolerance or hot flashes Ronaldo/Lymph: Denies: easy bruising or easy bleeding Medications/Allergies Home Medications Medication Instructions Recorded Confirmed Last Taken Type alendronate 10 mg tablet 10 mg PO DAILY 04/21/20 05/30/21 05/30/21 History benztropine 2 mg tablet 2 mg PO BID 04/21/20 05/30/21 05/30/21 History docusate sodium 50 mg capsule 100 mg PO BID 04/21/20 05/30/21 05/30/21 History olanzapine 20 mg tablet 20 mg PO DAILY 04/21/20 05/30/21 05/30/21 History omeprazole 20 mg capsule,delayed 20 mg PO DAILY 04/21/20 05/30/21 05/30/21 History release atorvastatin 40 mg PO BID 09/08/20 05/30/21 05/30/21 History losartan 25 mg PO DAILY 09/08/20 05/30/21 05/30/21 History ondansetron HCl 4 mg PO Q8H PRN 09/08/20 05/30/21 05/30/21 History paroxetine HCl [Paxil] 40 mg PO DAILY 09/08/20 05/30/21 05/30/21 History Topamax 200 mg PO DAILY 05/30/21 05/30/21 05/30/21 History ascorbic acid-bioflavonoids [Super 1 tab PO DAILY 05/30/21 05/30/21 05/30/21 History C Complex] poeldemyvy-DL-NX-acetaminophen 1 cap PO Q6H PRN 05/30/21 05/30/21 05/29/21 History [Cold and Flu Relief Plus (D/N)] Allergies Allergy/AdvReac Type Severity Reaction Status Date / Time Penicillins Allergy ALGY-Anaphy Verified 07/09/21 20:49 laxis ceflosporin Allergy Severe ALGY-Anaphy Uncoded 07/09/21 20:49 laxis PFSH Acute PFSH: Medical History GERD (gastroesophageal reflux disease) Hypertension Surgical History H/O abdominoplasty H/O colonoscopy 2017 H/O esophagogastroduodenoscopy yrs ago H/O lumpectomy left breast History of appendectomy History of mandibular surgery History of temporal artery biopsy (09/11/20) left Hx of tubal ligation Family History Mother Bleeding disorder hemophillia CAD (coronary artery disease) Father Cancer pancreatic Other Hypertension Denies family history of Anesthesia complication Social History Smoking and tobacco status: never smoked Alcohol intake: never Household members: family Marital status: Single Current occupational status: disabled History of recent travel: No Vitals/I&O/Wt Last Vital Signs Temp 98.0 F 07/09/21 16:37 Pulse 86 07/09/21 19:56 Resp 22 H 07/09/21 19:56 BP 117/78 07/09/21 19:56 Pulse Ox 91 07/09/21 19:56 Weight last 48 hrs Weight 79.832 kg Physical Exam Narrative: EXAM NARRATIVE: General: No acute distress,lying in bed, AO x3 HEENT: PERRLA, pupils bilaterally equal and reactive, pallors not present Chest: Normal vesicular breath sounds, no added sounds, equal good air entry bilaterally CVS: S1-S2 regular, no murmurs, no tachycardia, no gallops, no rubs Abdomen: Soft, nontender, no organomegaly, bowel sounds present Neuro: No focal deficits, no facial deformity, AO x3, power 5/5 in all limbs Extremities: no swelling, edema, cyanosis or clubbing Data : 07/10/21 04:22 07/10/21 04:23 Micro: Microbiology 07/09/21 19:42 Blood Culture - Preliminary Blood SPECIMEN COLLECTED 07/09/21 19:42 Blood Culture - Preliminary Blood SPECIMEN COLLECTED Attestation for Other Data: I personally reviewed and interpreted the following: Other data: Laboratory Results WBC 7.8 10^3/uL (4.0-10.0) 07/10/21 04:22 RBC 4.23 10^6/uL (4.1-5.3) 07/10/21 04:22 Hgb 11.6 g/dL (11.5-15.3) 07/10/21 04:22 Hct 35.8 % (37.0-47.0) L 07/10/21 04:22 MCV 84.6 fl (81-99) 07/10/21 04:22 MCH 27.4 pg (28.0-34.0) L 07/10/21 04:22 MCHC 32.4 g/dL (30.0-36.0) 07/10/21 04:22 RDW 14.2 % (12.1-15.1) 07/10/21 04:22 Plt Count 238 10^3/cmm (130-400) 07/10/21 04:22 MPV 11.9 fL (7.4-10.4) H 07/10/21 04:22 Neut % (Auto) 79.1 % 07/09/21 18:06 Lymph % (Auto) Not Reportable 07/10/21 04:22 [place] % (Auto) Not Reportable 07/10/21 04:22 Eos % (Auto) 0.1 % 07/09/21 18:06 Baso % (Auto) 0.5 % 07/09/21 18:06 Neut # (Auto) 7.66 10^3/uL (1.8-7.7) 07/09/21 18:06 Lymph # (Auto) Not Reportable 07/10/21 04:22 [place] # (Auto) Not Reportable 07/10/21 04:22 Eos # (Auto) 0.0 10^3/uL (0.0-0.8) 07/09/21 18:06 Baso # (Auto) 0.1 10^3/uL (0.0-0.1) 07/09/21 18:06 Nucleated RBC % (auto) 0 % 07/09/21 18:06 Total Counted 100 (0-100) 07/10/21 04:22 Atypical Lymphs % 0.0 % (0-5) 07/10/21 04:22 Absolute Neutrophils 6.8 10^3/cmm (1.4-6.5) H 07/10/21 04:22 Segmented Neutrophils 65 % 07/10/21 04:22 Abs Segm Neuts (Man) 5.1 10/cmm (1.6-7.1) 07/10/21 04:22 Band Neutrophils 22.0 % 07/10/21 04:22 Abs Band Neuts (Man) 1.7 10^3/cmm (0.0-1.2) H 07/10/21 04:22 Absolute Lymphocytes 0.7 10^3/cmm (1.2-3.4) L 07/10/21 04:22 Lymphocytes (Manual) 9 % 07/10/21 04:22 Monocytes (Manual) 3.0 % 07/10/21 04:22 Absolute Monocytes 0.2 10^3/cmm (0.1-0.6) 07/10/21 04:22 Eosinophils (Manual) 0 % 07/10/21 04:22 Absolute Eosinophils 0.0 10^3/cmm (0.0-0.7) 07/10/21 04:22 Basophils (Manual) 0.0 % 07/10/21 04:22 Absolute Basophils 0.0 10^3/cmm (0.0-0.2) 07/10/21 04:22 Metamyelocytes 1.0 % 07/10/21 04:22 Nucleated RBCs # 0.0 /100WBC 07/09/21 18:06 Smudge Cells 2+ H 07/10/21 04:22 Platelet Estimate Normal (Normal) 07/10/21 04:22 Sodium 136 mmol/L (136-145) 07/10/21 04:23 Potassium 3.2 mmol/L (3.5-5.1) L 07/10/21 04:23 Chloride 98 mmol/L (98-107) 07/10/21 04:23 Carbon Dioxide 22 mmol/L (22-29) 07/10/21 04:23 Anion Gap 19.2 (5-19) H 07/10/21 04:23 BUN 10 mg/dL (8-23) 07/10/21 04:23 Creatinine 0.7 mg/dL (0.5-0.9) 07/10/21 04:23 GFR Calculation 85.1 mL/min (90-130) L 07/10/21 04:23 Glucose 176 mg/dL (65-115) H 07/10/21 04:23 Calculated Osmolality 285 mOsm/kg (285-295) 07/10/21 04:23 Lactic Acid 1.2 mmol/L (0.5-2.2) 07/09/21 19:42 Calcium 8.7 mg/dL (8.5-10.5) 07/10/21 04:23 Magnesium 1.5 mg/dL (1.7-2.3) L 07/09/21 19:42 Total Bilirubin 0.4 mg/dL (0.15-1.2) 07/10/21 04:23 AST 17 U/L (0-32) 07/10/21 04:23 ALT 9 U/L (0-33) 07/10/21 04:23 Alkaline Phosphatase 128 IU/L (35-105) H 07/10/21 04:23 Total Protein 7.3 g/dL (6.6-8.7) 07/10/21 04:23 Albumin 3.3 g/dL (3.5-5.2) L 07/10/21 04:23 Globulin 4.0 g/dL (1.3-4.6) 07/10/21 04:23 Procalcitonin 1.40 ng/mL (0-0.5) H 07/09/21 18:06 Urine Color Yellow (Yellow) 07/09/21 18:18 Urine Appearance Cloudy (CLEAR) 07/09/21 18:18 Urine pH 6 (5-7) 07/09/21 18:18 Ur Specific Addis 1.015 (1.005-1.030) 07/09/21 18:18 Urine Protein Trace (Negative) 07/09/21 18:18 Urine Glucose (UA) Norm (Normal) 07/09/21 18:18 Urine Ketones Negative (Negative) 07/09/21 18:18 Urine Blood 3+ (Negative) H 07/09/21 18:18 Urine Nitrate Negative (Negative) 07/09/21 18:18 Urine Bilirubin Neg (Negative) 07/09/21 18:18 Urine Urobilinogen 1 mg/dL (Negative) H 07/09/21 18:18 Ur Leukocyte Esterase 1+ (Negative) H 07/09/21 18:18 Urine RBC Rare /hpf (0-2) 07/09/21 18:18 Urine WBC 0-4 /hpf (0-5) H 07/09/21 18:18 Ur Squamous Epith Cells 0-4 /hpf (0-5) H 07/09/21 18:18 Amorphous Sediment Not Reportable 07/09/21 18:18 Urine Bacteria 1+ /hpf (NONE) H 07/09/21 18:18 Influenza Type A Ag Negative (Negative) 07/09/21 18:38 Influenza Type B Ag Negative (Negative) 07/09/21 18:38 SARS-CoV-2 Ag (Rapid) Negative (Negative) 07/09/21 18:40 Impressions Chest X-Ray 07/09/21 17:32 IMPRESSION: Appearance of ill-defined opacities in the peripheral lung bases, left greater than right. Possibilities include atelectasis, artifact from overlying soft tissues, or potentially developing consolidations/multifocal pneumonia in the appropriate clinical setting.. Radiation Dose CTDIVOL = (mGy): DLP = (mGy-cm) Chest CTA 07/09/21 20:13 IMPRESSION: 1. The study is limited due to patient respiratory motion. 2. No evidence of pulmonary embolism. 3. No aortic aneurysm or dissection noted. 4. Nonspecific patchy airspace infiltrates are demonstrated in the inferior right upper lobe, the anteromedial right middle lobe, the lingula, and the bilateral lower lobes. Imaging features can be seen with COVID-19 pneumonia, though are nonspecific and can occur with a variety of infectious and noninfectious processes. (Reference: Raymond) REFERENCES: Raymond Chery, et al., Radiological Society of [place] Expert Consensus Statement on Reporting Chest CT Findings Related to COVID-19. Endorsed by the Society of Thoracic Radiology, the [place] [employer], and RSNA. Published December 15, 2019. Radiation Dose CTDIVOL = (mGy): DLP = 539.11 (mGy-cm) A&P Assessment and plan (1) Multifocal pneumonia: Post viral (COVID 19) pneumonia, multifocal on CTA , may be residual from recent COVID vs superimpsosed bacterial infection Allergic to PCN and cephalosporins, reported allergy is anaphylaxis. Start levofloxacin 750 mg daily. Bilateral wheezing on exam, cannot rule out bronchitis, start nebulization with DuoNeb and budesonide. Urine bacterial and Legionella antigens, sputum Gram stain and culture, MRSA PCR screen. Supplemental O2 to keep saturation greater than 92%. Status: Acute (2) Temporal arteritis: Temporal artery biopsy from August 2020 appears to have a preliminary result of slowly, however final diagnosis listed as temporal arteritis. Patient reports continued worsening depression since August 2020. States she was not aware of her biopsy results, has not followed back with neurology regarding the same. Check ESR and CRP Start presumptively on prednisone 60 mg p.o. daily while pending results. Status: Acute (3) Hypoxia: likely related to multifocal pneumonia ,post viral bronchitis supplemental 02 and nebulization as above Status: Acute Attestations Medical Necessity Statement*: anticipate >2midnight admission for above defined care Coding Level of Care Code Acute Nursing Care Partner for [facility] Fw Diagnoses Multifocal pneumonia J18.9 Temporal arteritis M31.6 Hypoxia R09.02
[2021-07-09 21:41] VITALS: BP 109/73; PULSE 90; RESP 28; TEMP 36.6; O2SAT 96
[2021-07-09 21:44] VITALS: BP 119/82; PULSE 88; RESP 16; O2SAT 91
[2021-07-09 23:10] VITALS: BMI 29.2
[2021-07-10] VITALS (18 sets, daily range): BP systolic 102–130; BP diastolic 67–88; PULSE 80–103; RESP 16–28; TEMP 36.4–36.9; O2SAT 91–97
[2021-07-10] MEDS: pantoprazole DR 40 mg Tablet PO ×2 (00:32→08:16)
[2021-07-10] MEDS: predniSONE 20 mg Tablet 60 MG PO ×2 (00:33→08:16)
[2021-07-10] MEDS: ondansetron 2 mg/ML SDV 2 mL 4 MG IVP (00:33)
[2021-07-10] MEDS: enoxaparin 40 mg/0.4 mL Syringe SUBCUT ×2 (00:33→23:12)
[2021-07-10] MEDS: morphine 4 mg/mL SDV 1 mL 2 MG IVP (00:34)
[2021-07-10] MEDS: ipratropium-albuterol 3 mL Neb INHALATION ×5 (00:58→20:43)
[2021-07-10 05:20] LABS: Hematocrit 35.8 % (37.0-47.0); Hemoglobin 11.6 g/dL (11.5-15.3); Mean Corpuscular HGB Conc 32.4 g/dL (30.0-36.0); Mean Corpuscular Hemoglobin 27.4 pg (28.0-34.0); Mean Corpuscular Volume 84.6 fl (81-99); Mean Platelet Volume 11.9 fL (7.4-10.4); Platelet Count 238 10^3/cmm (130-400); Red Blood Count 4.23 10^6/uL (4.1-5.3); Red Cell Distribution Width 14.2 % (12.1-15.1); White Blood Count 7.8 10^3/uL (4.0-10.0)
[2021-07-10 05:45] LABS: Alanine Aminotransferase 9 U/L (0-33); Albumin Level 3.3 g/dL (3.5-5.2); Alkaline Phosphatase 128 IU/L (35-105); Anion Gap 19.2 (5-19); Aspartate Amino Transferase 17 U/L (0-32); Blood Urea Nitrogen 10 mg/dL (8-23); Calcium 8.7 mg/dL (8.5-10.5); Carbon Dioxide 22 mmol/L (22-29); Chloride 98 mmol/L (98-107); Glomerular Filtration Rate 85.1 mL/min (90-130); Glucose 176 mg/dL (65-115); Osmolality Calculated 285 mOsm/kg (285-295); Potassium 3.2 mmol/L (3.5-5.1); Sodium 136 mmol/L (136-145); Total Bilirubin 0.4 mg/dL (0.15-1.2); Total Protein 7.3 g/dL (6.6-8.7)
[2021-07-10 06:15] LABS: Slide Review Slide Review Perform
[2021-07-10 06:19] LABS: Absolute Neutrophil 6.8 10^3/cmm (1.4-6.5); Absolute Segmented Neutrophil 5.1 10/cmm (1.6-7.1); Band Neutrophils Absolute 1.7 10^3/cmm (0.0-1.2); Eosinophils 0 %; Lymphocytes 9 %; Lymphocytes Absolute 0.7 10^3/cmm (1.2-3.4); Monocytes Absolute 0.2 10^3/cmm (0.1-0.6); Platelet Estimate Normal (Normal); Segmented Neutrophils 65 %; Total Cells Counted 100 (0-100)
[2021-07-10 06:20] LABS: Smudge Cells 2+
[2021-07-10 06:46] LABS: C Reactive Protein 319.3 mg/L (0.0-4.9)
[2021-07-10] MEDS: losartan 50 mg Tablet 25 MG PO (08:16)
[2021-07-10] MEDS: topiramate 100 mg Tablet 200 MG PO (08:16)
[2021-07-10] MEDS: PARoxetine 20 mg Tablet 40 MG PO (08:16)
[2021-07-10] MEDS: levoFLOXacin 750 mg Tablet PO (08:17)
[2021-07-10] MEDS: atorvastatin 40 mg Tablet 20 MG PO (08:17)
[2021-07-10] MEDS: lidocaine 1% 5 ML in potassium chloride premix 100 ML 25 ML IV (08:17)
[2021-07-10] MEDS: budesonide 0.5 mg/2 mL Neb INHALATION (09:12)
--- NOTE | 2021-07-10 09:14 | PC.PHAR ---
pt states her daughter helps her with her medications-pts daughter buddy states the pt takes the medications entered-rx filled on 06/28/21 for paxil 40mg daily pts daughter states it was suppose to be increased but states she doesnt think the pt has started the 40mg daily dose yet states the pt is still taking 20mg daily-notes are made in the pharmacy comments
--- NOTE | 2021-07-10 12:48 | P.PN_ITS ---
Subjective Subjective: Interval history: Patient emotionally labile when I discussed temporal arteritis and biopsy results, I did discuss complications of temporal arteritis such as blindness with the patient and also disclosed my concerns and findings with her daughter in front of the patient currently she is on high-dose steroids, as per the daughter for last few months her mother has been struggling with blurry vision Patient is stating that at home her temperature 102 she started experiencing shortness of breath with cough, bringing up red-colored sputum, she has not noticed any diarrhea, she has constipation, no active chest pain, lethargic and fatigued, because of worsening wheezing she decided to come to the hospital for further evaluation No fever or leukocytosis noted here currently saturating well on 3 L nasal cannula ESR is pending procalcitonin 1.4, requested urine antigens, Is endorsing anaphylactic shock to penicillin and cephalosporins, limited antibiotic options Might need Bactrim prophylaxis secondary to high-dose use of steroids Vitals/I&O/Wt Last Vital Signs Temp 97.8 F 07/10/21 11:32 Pulse 91 07/10/21 11:32 Resp 17 07/10/21 11:32 BP 112/74 07/10/21 11:32 Pulse Ox 94 07/10/21 11:32 07/09/21 07/10/21 07/10/21 22:59 06:59 14:59 Intake Total 565 / 565 Output Total Balance 565 / 565 Weight last 48 hrs Weight 79.832 kg Weight 79.832 kg Physical Exam Narrative: EXAM NARRATIVE: Patient appears stated age, does not look dehydrated Emotionally very labile Saturating well on 3 L nasal cannula S1, S2 no murmur Abdomen soft nontender no signs of peritonitis bowel sound present Bilateral breath sounds with active expiratory wheezing and crepitation at the bases Lower extremity no edema EOMI, PERRLA She only has vision upto 1 feet on left side She has tenderness on left temporal/scalp area on palpation Data : 07/10/21 04:22 07/10/21 04:23 Micro: Microbiology 07/09/21 19:42 Blood Culture - Preliminary Blood SPECIMEN COLLECTED 07/09/21 19:42 Blood Culture - Preliminary Blood SPECIMEN COLLECTED A&P Assessment and plan (1) Temporal arteritis: Status: Acute (2) Multifocal pneumonia: Status: Acute (3) Hypoxia: Status: Acute (4) History of temporal artery biopsy: Status: Acute Additional A&P Information Pneumonia without sepsis Superimposed bacterial pneumonia, COVID-19 pneumonia May 23 Patient is vaccinated for COVID-19 Currently on 3 L nasal cannula, acute hypoxic restaurant failure related to pneumonia Has penicillin and cephalosporin anaphylactic shock history Currently on Levaquin, depending on MRSA nares we will decide about vancomycin, she will need high-dose steroids for temporal arteritis regimen, will add Bactrim as prophylactic choice Follow-up with CRP, ESR, LDH Urine antigens, blood culture, sputum culture requested Patient endorsing red color productive cough, hemoglobin stable 11.6 hemodynamically stable Temporal arteritis tenderness of left scalp/temporal area, left eye vision loss, currently on high-dose steroids, We will add Bactrim prophylaxis, Protonix for GI protection Monitor for hypotension, encephalopathy/psychosis, hyperglycemia Acute hypoxic respite failure secondary to pneumonia We will request D-dimer to rule out PE COVID-19 negative, influenza panel negative, Full code Cardiac diet DVT prophylaxis: Lovenox Family updated Attestations Medical Necessity Statement*: Anticipating prolonged hospitalization Time Spent in Patient Care: 16 - 35 minutes Coding Level of Care Code 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
[2021-07-10 14:50] LABS: Estmated Average Glucose 105; Hemoglobin A1C 5.3 % (4.0-6.0)
[2021-07-10 17:25] LABS: Glucose Point of Care 164 mg/dL (70-110)
[2021-07-10] MEDS: sulfamethoxazole-trimeth DS 160-800 mg Tablet 1 TAB PO (17:33)
[2021-07-10] MEDS: insulin lispro 100 unit/1 mL SUBCUT ×2 (17:33→21:01)
[2021-07-10 20:17] LABS: Glucose Point of Care 170 mg/dL (70-110)
[2021-07-10] MEDS: OLANZapine 10 mg TABLET 20 MG PO (21:00)
[2021-07-10] MEDS: calcium carbonate 500 mg Chew Tablet PO (23:11)
[2021-07-11] VITALS (14 sets, daily range): BP systolic 103–126; BP diastolic 62–76; PULSE 80–104; RESP 17–20; TEMP 36.4–36.8; O2SAT 91–95
[2021-07-11] MEDS: ipratropium-albuterol 3 mL Neb INHALATION ×3 (02:44→20:16)
[2021-07-11 05:44] LABS: Basophils % 0.3 %; Hematocrit 33.3 % (37.0-47.0); Lymphocytes # 0.9 10^3/uL (0.8-4.8); Lymphocytes % 11.9 %; Mean Corpuscular Hemoglobin 27.9 pg (28.0-34.0); Mean Corpuscular Volume 84.5 fl (81-99); Mean Platelet Volume 11.4 fL (7.4-10.4); Monocytes # 0.3 10^3/uL (0.2-0.9); Monocytes % 3.9 %; Neutrophils # 6.37 10^3/uL (1.8-7.7); Neutrophils % 82.1 %; Nucleated Red Blood Cells % 0 %; Platelet Count 245 10^3/cmm (130-400); Red Blood Count 3.94 10^6/uL (4.1-5.3); Red Cell Distribution Width 14.4 % (12.1-15.1); White Blood Count 7.8 10^3/uL (4.0-10.0)
[2021-07-11 06:08] LABS: Blood Urea Nitrogen 11 mg/dL (8-23); Carbon Dioxide 24 mmol/L (22-29); Chloride 100 mmol/L (98-107); Glomerular Filtration Rate 85.1 mL/min (90-130); Glucose 174 mg/dL (65-115); Osmolality Calculated 288 mOsm/kg (285-295); Sodium 137 mmol/L (136-145)
[2021-07-11 06:16] LABS: Glucose Point of Care 196 mg/dL (70-110)
[2021-07-11 06:24] LABS: Anion Gap 16.3 (5-19); Potassium 3.3 mmol/L (3.5-5.1)
[2021-07-11] MEDS: pantoprazole DR 40 mg Tablet PO (08:49)
[2021-07-11] MEDS: levoFLOXacin 750 mg Tablet PO (08:49)
[2021-07-11] MEDS: insulin lispro 100 unit/1 mL SUBCUT ×2 (08:49→21:11)
[2021-07-11] MEDS: sennosides-docusate Tablet 2 TAB PO (08:49)
[2021-07-11] MEDS: losartan 50 mg Tablet 25 MG PO (08:50)
[2021-07-11] MEDS: sulfamethoxazole-trimeth DS 160-800 mg Tablet 1 TAB PO ×2 (08:50→18:04)
[2021-07-11] MEDS: topiramate 100 mg Tablet 200 MG PO (08:50)
[2021-07-11] MEDS: PARoxetine 20 mg Tablet 40 MG PO (08:50)
[2021-07-11] MEDS: atorvastatin 40 mg Tablet 20 MG PO (08:51)
[2021-07-11 12:11] LABS: Glucose Point of Care 107 mg/dL (70-110)
--- NOTE | 2021-07-11 16:04 | PM.PN ---
Subjective Subjective: Interval history: This morning patient was still wheezing saturating well on 2 L nasal cannula Afebrile no leukocytosis worsening, no fever, cultures negative, Vitals/I&O/Wt Last Vital Signs Temp 97.8 F 07/11/21 11:39 Pulse 83 07/11/21 14:57 Resp 19 H 07/11/21 11:39 BP 103/62 07/11/21 11:39 Pulse Ox 93 07/11/21 14:57 07/11/21 07/11/21 07/11/21 06:59 14:59 22:59 Intake Total 498 / 498 Output Total 1400 / 1400 Balance -1400 / -217 498 / 498 Weight last 48 hrs Weight 79.832 kg Weight 79.832 kg Physical Exam Narrative: EXAM NARRATIVE: Patient was saturating well on 2 L nasal cannula Active wheezing however slight improved than yesterday No active stridor Audible wheezing No conversational dyspnea No cyanosis or gangrene Lower extremity no edema S1, S2 sinus rhythm no murmur appreciated Abdomen soft Nonfocal neuro exam Data : 07/11/21 05:04 07/11/21 05:04 Micro: Microbiology 07/10/21 08:32 Gram Stain - Final Sputum - Expectorated Sputum Sputum Culture - Preliminary 07/09/21 18:18 Urine Culture - Final Urine,Clean Catch 07/09/21 19:42 Blood Culture - Preliminary Blood NEGATIVE TO DATE 07/09/21 19:42 Blood Culture - Preliminary Blood NEGATIVE TO DATE 07/10/21 00:05 MRSA Culture - Final Nose A&P Assessment and plan (1) History of temporal artery biopsy: Status: Acute (2) Hypoxia: Status: Acute (3) Multifocal pneumonia: Status: Acute (4) Temporal arteritis: Status: Acute (5) Chronic migraine: Status: Acute Additional A&P Information Acute hypoxic resp failure Superimposed bacterial infection without sepsis Currently doing well on 2 L nasal cannula, plan to wean off oxygen COVID-19 negative Cultures negative No leukocytosis Active wheezing, Continue Bactrim and Levaquin for now DuoNeb and Mucomyst No signs of PE covid 19 sequelae pro calcitonin trending down 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
[2021-07-11 17:03] LABS: Glucose Point of Care 131 mg/dL (70-110)
[2021-07-11] MEDS: potassium chloride ER 20 mEq Tablet 40 MEQ PO (18:04)
[2021-07-11] MEDS: budesonide 0.5 mg/2 mL Neb INHALATION (20:16)
[2021-07-11 20:54] LABS: Glucose Point of Care 141 mg/dL (70-110)
[2021-07-11] MEDS: OLANZapine 10 mg TABLET 20 MG PO (21:11)
[2021-07-11] MEDS: enoxaparin 40 mg/0.4 mL Syringe SUBCUT (22:36)
[2021-07-12] VITALS (14 sets, daily range): BP systolic 98–134; BP diastolic 57–99; PULSE 77–111; RESP 16–20; TEMP 36.3–36.9; O2SAT 92–100
[2021-07-12] MEDS: ipratropium-albuterol 3 mL Neb INHALATION ×4 (02:59→20:26)
[2021-07-12 05:25] LABS: Basophils % 0.2 %; Hematocrit 32.7 % (37.0-47.0); Hemoglobin 10.4 g/dL (11.5-15.3); Lymphocytes # 1.4 10^3/uL (0.8-4.8); Lymphocytes % 10.6 %; Mean Corpuscular HGB Conc 31.8 g/dL (30.0-36.0); Mean Corpuscular Hemoglobin 27.5 pg (28.0-34.0); Mean Corpuscular Volume 86.5 fl (81-99); Mean Platelet Volume 11.2 fL (7.4-10.4); Monocytes # 0.7 10^3/uL (0.2-0.9); Monocytes % 5.5 %; Neutrophils # 10.38 10^3/uL (1.8-7.7); Nucleated Red Blood Cells % 0 %; Platelet Count 251 10^3/cmm (130-400); Red Blood Count 3.78 10^6/uL (4.1-5.3); Red Cell Distribution Width 15.1 % (12.1-15.1); White Blood Count 13.1 10^3/uL (4.0-10.0)
[2021-07-12 05:42] LABS: Procalcitonin 0.22 ng/mL (0-0.5)
[2021-07-12 05:49] LABS: Anion Gap 15.9 (5-19); Blood Urea Nitrogen 15 mg/dL (8-23); C Reactive Protein 37.2 mg/L (0.0-4.9); Calcium 9.1 mg/dL (8.5-10.5); Carbon Dioxide 21 mmol/L (22-29); Chloride 103 mmol/L (98-107); Glomerular Filtration Rate 85.1 mL/min (90-130); Glucose 114 mg/dL (65-115); Osmolality Calculated 284 mOsm/kg (285-295); Potassium 3.9 mmol/L (3.5-5.1); Sodium 136 mmol/L (136-145)
[2021-07-12 06:47] LABS: Glucose Point of Care 107 mg/dL (70-110)
[2021-07-12] MEDS: sulfamethoxazole-trimeth DS 160-800 mg Tablet 1 TAB PO ×2 (07:58→18:11)
[2021-07-12] MEDS: benzonatate 100 mg Capsule PO (07:58)
[2021-07-12] MEDS: pantoprazole DR 40 mg Tablet PO (07:58)
[2021-07-12] MEDS: PARoxetine 20 mg Tablet 40 MG PO (07:59)
[2021-07-12] MEDS: sennosides-docusate Tablet 2 TAB PO (07:59)
[2021-07-12] MEDS: levoFLOXacin 750 mg Tablet PO (07:59)
[2021-07-12] MEDS: losartan 50 mg Tablet 25 MG PO (07:59)
[2021-07-12] MEDS: topiramate 100 mg Tablet 200 MG PO (07:59)
[2021-07-12] MEDS: atorvastatin 40 mg Tablet 20 MG PO (08:00)
[2021-07-12] MEDS: budesonide 0.5 mg/2 mL Neb INHALATION ×2 (08:49→20:26)
--- NOTE | 2021-07-12 09:52 | PM.PN ---
Subjective Subjective: Interval history: Patient is feeling better today, she will get her dose of IV steroids this morning Her wheezing has improved Currently saturating well on 2 L nasal cannula Procalcitonin and CRP trending down Afebrile cultures negative to date Vitals/I&O/Wt Last Vital Signs Temp 97.3 F L 07/12/21 07:29 Pulse 93 07/12/21 09:03 Resp 18 07/12/21 08:49 BP 134/99 07/12/21 07:59 Pulse Ox 97 07/12/21 08:49 07/11/21 07/12/21 07/12/21 22:59 06:59 14:59 Intake Total 480 / 978 600 / 1578 Output Total 800 / 800 800 / 1600 Balance -320 / 178 -200 / -22 Physical Exam Narrative: EXAM NARRATIVE: Resting comfortably saturating well on 2 L nasal cannula Bilateral breath sounds improvement in wheezing noticed today Soft abdomen EOMI, PERRLA No no focal neuro exam No joint swelling, no sign of cellulitis She is wearing glasses Saturating well without acute respiratory distress Data : 07/12/21 04:19 07/12/21 04:19 Micro: Microbiology 07/10/21 08:32 Gram Stain - Final Sputum - Expectorated Sputum Sputum Culture - Preliminary 07/09/21 18:18 Urine Culture - Final Urine,Clean Catch A&P Assessment and plan (1) Temporal arteritis: Status: Acute (2) Multifocal pneumonia: Status: Acute (3) Hypoxia: Status: Acute (4) History of temporal artery biopsy: Status: Acute (5) Chronic migraine: Status: Acute Additional A&P Information Acute hypoxic resp failure secondary to pneumonia Patient symptoms are improving currently saturating well on 2 L nasal cannula Cultures negative to date, she is afebrile Leukocytosis seems secondary to steroids Temporal arteritis with vision changes: To finish third day of IV steroids, will start 60 mg prednisone tomorrow No hypertension or high blood sugar noticed She is on Protonix CRP and procalcitonin trending down She is on Bactrim as prophylactic regimen because of use of high-dose steroids which will extend more than 1 month Consistent carb diet Full code Lovenox DVT prophylaxis If clinically doing better tomorrow plan discharge home Attestations Medical Necessity Statement*: Continue medical management Time Spent in Patient Care: less than 15 minutes Coding Level of Care Code 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
[2021-07-12 12:27] LABS: Glucose Point of Care 131 mg/dL (70-110)
[2021-07-12 16:47] LABS: Erythrocyte Sedimentation Rate 2 mm/hr (0-15)
[2021-07-12 17:00] LABS: Glucose Point of Care 138 mg/dL (70-110)
[2021-07-12 20:51] LABS: Glucose Point of Care 150 mg/dL (70-110)
[2021-07-12] MEDS: insulin lispro 100 unit/1 mL SUBCUT (21:08)
[2021-07-12] MEDS: OLANZapine 10 mg TABLET 20 MG PO (21:08)
[2021-07-12] MEDS: enoxaparin 40 mg/0.4 mL Syringe SUBCUT (23:22)
[2021-07-13] VITALS (9 sets, daily range): BP systolic 104–134; BP diastolic 63–87; PULSE 74–93; RESP 14–20; TEMP 36.1–36.7; O2SAT 92–96
[2021-07-13] MEDS: ipratropium-albuterol 3 mL Neb INHALATION ×2 (03:02→08:27)
[2021-07-13 05:31] LABS: Anion Gap 13.2 (5-19); Blood Urea Nitrogen 16 mg/dL (8-23); Calcium 9.2 mg/dL (8.5-10.5); Carbon Dioxide 26 mmol/L (22-29); Chloride 104 mmol/L (98-107); Glomerular Filtration Rate 85.1 mL/min (90-130); Glucose 109 mg/dL (65-115); Osmolality Calculated 290 mOsm/kg (285-295); Potassium 4.2 mmol/L (3.5-5.1); Sodium 139 mmol/L (136-145)
[2021-07-13 06:05] LABS: Hematocrit 32.9 % (37.0-47.0); Hemoglobin 10.5 g/dL (11.5-15.3); Mean Corpuscular HGB Conc 31.9 g/dL (30.0-36.0); Mean Corpuscular Volume 87.7 fl (81-99); Mean Platelet Volume 11.2 fL (7.4-10.4); Platelet Count 249 10^3/cmm (130-400); Red Blood Count 3.75 10^6/uL (4.1-5.3); Red Cell Distribution Width 15.1 % (12.1-15.1); White Blood Count 9.8 10^3/uL (4.0-10.0)
[2021-07-13 06:29] LABS: Glucose Point of Care 97 mg/dL (70-110)
[2021-07-13 07:23] LABS: Segmented Neutrophils 71 %; Slide Review Slide Review Perform; Total Cells Counted 100 (0-100)
[2021-07-13 07:24] LABS: Band Neutrophils Absolute 0.5 10^3/cmm (0.0-1.2); Eosinophils 0 %; Lymphocytes 12 %; Lymphocytes Absolute 1.2 10^3/cmm (1.2-3.4); Monocytes Absolute 0.6 10^3/cmm (0.1-0.6)
[2021-07-13 07:31] LABS: Absolute Neutrophil 7.4 10^3/cmm (1.4-6.5); Platelet Estimate Normal (Normal)
[2021-07-13] MEDS: PARoxetine 20 mg Tablet 40 MG PO (08:15)
[2021-07-13] MEDS: topiramate 100 mg Tablet 200 MG PO (08:15)
[2021-07-13] MEDS: levoFLOXacin 750 mg Tablet PO (08:15)
[2021-07-13] MEDS: pantoprazole DR 40 mg Tablet PO (08:16)
[2021-07-13] MEDS: sennosides-docusate Tablet 2 TAB PO (08:16)
[2021-07-13] MEDS: atorvastatin 40 mg Tablet 20 MG PO (08:16)
[2021-07-13] MEDS: losartan 50 mg Tablet 25 MG PO (08:16)
[2021-07-13] MEDS: sulfamethoxazole-trimeth DS 160-800 mg Tablet 1 TAB PO (08:16)
[2021-07-13] MEDS: budesonide 0.5 mg/2 mL Neb INHALATION (08:27)
--- NOTE | 2021-07-13 10:06 | PM.DCS ---
Discharge Providers Date of Admission: 07/09/21 20:54 Date of Discharge: July 13, 2021 Attending Provider at Admission: Ana Andres MD Attending Provider at Discharge: Colten Mahoney MD Primary Care Provider: Arnulfo Valencia MD Diagnoses at Discharge Discharge Diagnosis (1) Temporal arteritis: Status: Acute (2) Multifocal pneumonia: Status: Acute (3) Hypoxia: Status: Acute (4) History of temporal artery biopsy: Status: Acute Permanent problem details: left (5) Chronic migraine: Status: Acute Reason for Visit Reason for Visit: sob, cough, fever, congestion Hospital Course Hospital Course History of Present Illness by Dr Dmitry Valencia Clyde Oreilly is a 60 year old female with recent history of COVID-19 May 23, 2021, plan for monoclonal antibody infusion, but ultimately could not obtain it as developed chest pain prior to infusion. Reportedly recovered without complications. Presents to the hospital now with complaints of 1 week of fever, increased cough, sputum production and difficulty breathing. She has a new oxygen requirement of 4 L/min via nasal cannula. No other complaints of dysuria, nausea vomiting diarrhea. Patient reports being constipated for 2 weeks, passing flatus. No abdominal pain or chest pain. CT of the chest performed upon admission negative for PE but showed bilateral scattered infiltrates concerning for multifocal pneumonia. Labs notable for neutrophilic predominance and smudge cells on peripheral smear, but WBC count otherwise within normal limits. Pro-Sheng elevated at 1.4. Review of past records show that patient has had a history of atypical headaches and visual disturbances for which she followed with neurology in August 2020, underwent a temporal artery biopsy however has not followed up since then. Per review of the pathology report, it appears that initially preliminary diagnosis was negative, however final diagnosis is listed as temporal arteritis. Patient states that between August and now she has had deterioration in her vision. She is unable to clearly see characters on TV Hosp Course: Patient was admitted for acute hypoxic respiratory failure related to superimposed bacterial pneumonia. She was treated with Levaquin. She has allergies to penicillin and cephalosporins(anaphylactic shock hx). She was requiring 2 L of oxygen with active audible wheezing, her symptoms improved with use of steroids and antibiotics. At the time of discharge she did not qualify oxygen as per RT assessment. Her wheezing improved as well. For her left temporal area tenderness and vision changes she was given 1000 mg of methylprednisolone IV for 3 days and on fourth day she was started on prednisone 50 mg. She will be discharged on 07/13 with prescription for prednisone 50 mg once daily regimen for 14 days, after that she will take 40 mg. starting prednisone dose 50 mg/day for two weeks and to 40 mg/day at the end of four weeks, assuming symptoms and signs have receded and the ESR and CRP have declined to normal or near-normal ranges. Subsequently, the dose can gradually be reduced by 5 mg every two weeks to 20 mg/day and then by 2.5 mg every two weeks to 10 mg/day if there are no flares of disease activity. After achieving a daily dose of 10 mg, the prednisone taper should be slowed, such that patients remain on progressively decreasing doses over the ensuing 6 to 12 months. Tapering by 1 mg decrements each month once the daily dose is less than 10 mg can be considered. Considering chronic high-dose steroids I have added Bactrim for PCP prophylaxis. Her CRP has trending down, procalcitonin remarkably trending down as well. She has remained afebrile, cultures remained sterile. She has been given appointment with Dr. Turk on 07/17 for closer follow-up. She will need long-term steroid regimen, steroid induced hypertension hyperglycemia risk of gastric ulcer explained to the patient, she will be discharged with Protonix. During hospitalization her sugars under pressure remained within normal range. She is not diabetic but with this high-dose steroids she can suffer from steroid-induced hyperglycemia which might affect her hemoglobin A1c as well I did request hemoglobin A1c during hospitalization which was around 5.3. I did discuss my plan of care with the patient and her daughter, their questions were answered to their satisfaction. I did explain that these vision changes are most likely related to temporal arteritis, vasculitis can cause irreversible damage to the vision and steroids are used to slow the progression of the disease. Physical Exam Narrative: EXAM NARRATIVE: Very pleasant and cooperative room air She does have cushingoid appearance Wheezing has improved Bilateral breath active wheezing she mild crackles at the bases of the lungs She is complaining of left lower quadrant pawan pain which is she is able to pinpoint no signs of peritonitis she had a bowel movement yesterday, no signs of acute abdomen Lower extremities without edema EOMI, PERRLA Nonfocal neuro exam She did only see upto 1 feet with her left eye Discharge Data Data Completed and Pending: Completed Studies During Hospitalization Category Date Time Status CT angio chest PE protcl [id number] Urge nt Cat Scan 07/09/21 20:13 Completed XR chest 1V syd ble [id number] Urgent Exams 07/09/21 17:32 Completed Pending at discharge Category Date Time Status Bacterial Antigen Stat Lab 07/09/21 06:19 Ordered Blood Culture Sta t Lab 07/09/21 19:42 Results Legionella Antige n STAT Routine Lab 07/10/21 06:46 Ordered Labs from last 24 hours 07/13/21 07/13/21 07/13/21 06:09 04:26 04:26 WBC 9.8 RBC 3.75 L Hgb 10.5 L Hct 32.9 L MCV 87.7 MCH 28.0 MCHC 31.9 RDW 15.1 Plt Count 249 MPV 11.2 H Lymph % (Auto) Not Reportable Allen % (Auto) Not Reportable Lymph # (Auto) Not Reportable Allen # (Auto) Not Reportable Total Counted 100 Atypical Lymphs % 0.0 Absolute Neutrophi ls 7.4 H Segmented Neutroph ils 71 Abs Segm Neuts (Ma n) 7.0 Band Neutrophils 5.0 Abs Band Neuts (Ma n) 0.5 Absolute Lymphocyt es 1.2 Lymphocytes (Manua l) 12 Monocytes (Manual) 6.0 Absolute Monocytes 0.6 Eosinophils (Manua l) 0 Absolute Eosinophi ls 0.0 Basophils (Manual) 0.0 Absolute Basophils 0.0 Metamyelocytes 4.0 Myelocytes 1.0 Platelet Estimate Normal ESR Sodium 139 Potassium 4.2 Chloride 104 Carbon Dioxide 26 Anion Gap 13.2 BUN 16 Creatinine 0.7 GFR Calculation 85.1 L Glucose 109 POC Glucose 97 Calculated Osmolal ity 290 Calcium 9.2 07/12/21 07/12/21 07/12/21 20:47 16:56 12:09 WBC RBC Hgb Hct MCV MCH MCHC RDW Plt Count MPV Lymph % (Auto) Allen % (Auto) Lymph # (Auto) Allen # (Auto) Total Counted Atypical Lymphs % Absolute Neutrophi ls Segmented Neutroph ils Abs Segm Neuts (Ma n) Band Neutrophils Abs Band Neuts (Ma n) Absolute Lymphocyt es Lymphocytes (Manua l) Monocytes (Manual) Absolute Monocytes Eosinophils (Manua l) Absolute Eosinophi ls Basophils (Manual) Absolute Basophils Metamyelocytes Myelocytes Platelet Estimate ESR Sodium Potassium Chloride Carbon Dioxide Anion Gap BUN Creatinine GFR Calculation Glucose POC Glucose 150 H 138 H 131 H Calculated Osmolal ity Calcium 07/10/21 04:56 WBC RBC Hgb Hct MCV MCH MCHC RDW Plt Count MPV Lymph % (Auto) Allen % (Auto) Lymph # (Auto) Allen # (Auto) Total Counted Atypical Lymphs % Absolute Neutrophi ls Segmented Neutroph ils Abs Segm Neuts (Ma n) Band Neutrophils Abs Band Neuts (Ma n) Absolute Lymphocyt es Lymphocytes (Manua l) Monocytes (Manual) Absolute Monocytes Eosinophils (Manua l) Absolute Eosinophi ls Basophils (Manual) Absolute Basophils Metamyelocytes Myelocytes Platelet Estimate ESR 2 Sodium Potassium Chloride Carbon Dioxide Anion Gap BUN Creatinine GFR Calculation Glucose POC Glucose Calculated Osmolal ity Calcium Vitals: Last Vital Signs Temp 97.8 F 07/13/21 08:00 Pulse 90 07/13/21 08:47 Resp 20 H 07/13/21 08:47 BP 131/87 07/13/21 08:00 Pulse Ox 94 07/13/21 08:48 Discharge Plan Discharge Patient Disposition: Home Condition: Stable Prescriptions: New acetaminophen 325 mg Tablet 650 mg PO Q6H PRN (Reason: Mild/Mod Pain Or Temp >/= 101) 30 Days Qty: 90 RF: 0 Stool Softener-Laxative 8.6-50 mg Tablet 2 tab PO DAILY 10 Days Qty: 10 RF: 0 sulfamethoxazole-trimethoprim 800-160 mg Tablet 1 tab PO DAILY 30 Days Qty: 30 RF: 1 pantoprazole 40 mg Tablet,Delayed Release (Dr/Ec) 40 mg PO DAILY 30 Days RF: 3 levofloxacin 750 mg Tablet 750 mg PO DAILY 7 Days Qty: 7 RF: 0 albuterol sulfate 90 mcg/actuation HFA aerosol inhaler 2 inh inhalation QID Qty: 8.5 RF: 3 prednisone 50 mg tablet 50 mg PO DAILY 14 Days Qty: 14 RF: 0 prednisone 20 mg tablet 40 mg PO DAILY 7 Days Qty: 14 RF: 0 Continued omeprazole 20 mg capsule,delayed release(DR/EC) 20 mg PO QAM RF: 0 alendronate 10 mg tablet 10 mg PO QAM RF: 0 benztropine 2 mg tablet 2 mg PO BID PRN (Reason: unknown) RF: 0 docusate sodium 50 mg capsule 200 mg PO QAM RF: 0 olanzapine [Zyprexa] 20 mg tablet 20 mg PO DAILY RF: 0 atorvastatin 40 mg tablet 20 mg PO QPM RF: 0 ondansetron HCl 4 mg tablet 4 mg PO Q8H PRN (Reason: NAUSEA/VOMITING) RF: 0 losartan 25 mg tablet 12.5 mg PO DAILY RF: 0 paroxetine HCl [Paxil] 40 mg tablet 20 mg PO DAILY RF: 0 topiramate 200 mg tablet 200 mg PO DAILY RF: 0 Severe Cold and Flu (PE) 1 tab PO TID RF: 0 Discontinued Super C Complex 500-500 mg Tablet 1 tab PO DAILY RF: 0 ibuprofen 800 mg Tablet 800 mg PO Q4H PRN (Reason: Pain) RF: 0 Discharge Orders: Discharge Order (Routine); Ordered 07/13/21 Ordered By: Colten Mahoney Referrals: Taty Martínez MD [Referring] - 07/19/21 10:30 am Ute Turk MD [Physician] - 07/17/21 11:45 am (v imp to f/u Vision changes and Temporal arteritis) Discharge Diet: Cardiac and Diabetic Discharge Activity: Increase activity as tolerated Patient Instructions: How to Take Your Blood Pressure, Type 2 Diabetes, Sulfamethoxazole/Trimethoprim (By mouth), Acetaminophen (By mouth), Albuterol (By breathing), Prednisone (By mouth), Levofloxacin (By mouth), Pantoprazole (By mouth), Senna (By mouth), Viral Pneumonia (DC), Temporal Arteritis (DC), Opioid Safety Activity Restrictions/Additional Instructions: It is very important that you follow-up with your PCP and neurologist You will need long-term steroid regimen with Bactrim prophylaxis to avoid PCP pneumonia which can happen with long-term steroid use He did not qualify for oxygen at the time of discharge Please monitor your blood sugar and blood pressure. I am giving you omeprazole for GI protection to avoid ulcers with use of steroids You are at risk of blindness because of giant cell arteritis, starting prednisone dose 50 mg/day for two weeks and to 40 mg/day at the end of four weeks, assuming symptoms and signs have receded and the ESR and CRP have declined to normal or near-normal ranges. Subsequently, the dose can gradually be reduced by 5 mg every two weeks to 20 mg/day and then by 2.5 mg every two weeks to 10 mg/day if there are no flares of disease activity. After achieving a daily dose of 10 mg, the prednisone taper should be slowed, such that patients remain on progressively decreasing doses over the ensuing 6 to 12 months. Tapering by 1 mg decrements each month once the daily dose is less than 10 mg can be considered. Discharge Attestations Time Spent in Discharge Care*: less than 30 min Quality Metrics Clinical Quality Measures During this hospital stay, did patient experience: None Coding Level of Care Code Acute g [facility] note Diagnoses Temporal arteritis M31.6 Multifocal pneumonia J18.9 Hypoxia R09.02 History of temporal artery biopsy Z98.890 Chronic migraine G43.709
[2021-07-13 11:36] LABS: Glucose Point of Care 82 mg/dL (70-110)
--- NOTE | 2021-07-13 12:53 | PC.CHAP ---
Pastoral Care Encounter/Spiritual Assessment Type of Contact [] Declined dam tender visit [] Patient/Family/Request visit [] Outpatient visit [xx] Follow-up visit [] Physician referral [] Code/Alert [] Routine visit [] Staff referral [] Actively dying [] Patient sleeping [] Family support [] [] Out of room [] Palliative care [] [xx] Receiving care in room [] Pre-surgical visit [] Trauma [] Long length of stay [] ICU visit [] Other: Relational/Emotional Strength [] Patient feels connected with others/family/visitors/staff [] Distress [] Loneliness/isolation [] Abandonment Spirituality of Patient [] Person of Anamaria [] Attends Anabaptism of their [place] [] Believes in Prayer [] Reads Bible or Yarsani materials [] There are Spiritual issues to be addressed [employer] Interventions [] Prayer [] Active listening [] Non-anxious presence [] Spiritual/emotional support [] Crisis/trauma care [] Spiritual counseling [] Bereavement support [] Provided bereavement packet [] Provided Bible/devotional materials [] Provided toy/stuffed animal, coloring book to patient or family member [] Provided Communion [] Anointing/[place] [] Salvation [] Completed spiritual assessment [] Other: Impact on Illness or Injury [] Angry [] Fearful [] Anxious [] Often cries [] Exhaustion [] Unable to work [] Unable to attend mandaeism [] Unable to walk/stand [] Unable to read [] Unable to drive [] Unable to eat/drink [] Unable to sleep [] Unable to be with family [] Patient intubated [] Other: Summary Follow up Time spent with patient
--- NOTE | 2021-07-13 16:58 | PC.NURSE ---
Discharge instructions reviewed with patient, denies further questions or concerns, patient belongings sent with patient.
--- NOTE | 2021-07-16 11:23 | PC.SOCIAL ---
Addendum entered by Soco Kelly RN 07/16/21 12:33: After discussion with Dr Mahoney he wants Dr Turk to taper after the first 3 weeks. Prednisone will be 50mg once daily for 14 days then Prednisone 40mg once daily for 7 days. Notified Deloris Martinez RN CM. She will call patient and discuss that prior to the end of [address] Turk will need to provide further instructions on how she wants the Prednisone tapered and new script sent to [facility]. Deloris will call patient and will also provide information to clinic so this can be reviewed when she attends appt. Appt with Dr Turk currently scheduled for tomorrow 07/17/2021. It will be important for patient to attend and Deloris will try to make contact and update patient of this. Notified Aruna in pharmacy at [facility] as well to only fill the 3 weeks and further instruction per Dr Turk. Dr Mahoney did indicate he sent email to Dr Turk as well regarding need for tapering dose after she evaluates patient. Original Note: Aruna from [facility] called to clarify the Prednisone dosage which starts out high and seems to taper. Unable to explain this therefore sent message to Dr Mahoney asking that he call and provide the specific dosage requirement. Attn: Aruna and number provided was [phone]. Dr Mahoney did receive the message.
--- NOTE | 2021-07-16 16:31 | PC.SOCIAL ---
discharge follow up call. patient c/o sores in her mouth and that she has no way to check her blood sugars. spoke with Dr. Mahoney, he will send medications into [facility] for thrush and for the blood sugar meter.
== END 2021-07-13 17:01 | disposition home or self-care (01) | DRG 193 ==
LOC: ER 20:25 → MEDSURG 21:16
PROVIDERS: Admitting Provider Student in an Organized Health Care Education/Training Program; Emergency Provider Physician Assistant; Visit Provider Internal Medicine
DX: J15.9 Unspecified bacterial pneumonia (principal); J96.01 Acute respiratory failure with hypoxia; B37.0 Candidal stomatitis; Z86.16 Personal history of COVID-19; K21.9 Gastro-esophageal reflux disease without esophagitis; I10 Essential (primary) hypertension; M31.6 Other giant cell arteritis; Z88.1 Allergy status to other antibiotic agents; Z88.0 Allergy status to penicillin; F32.9 Major depressive disorder, single episode, unspecified; G43.709 Chronic migraine without aura, not intractable, without status migrainosus
CPT/HCPCS: 36415; 36416; 71045; 71275; 80048; 80053; 81001; 82962; 83036; 83605; 83735; 84145; 85007; 85025; 85651; 86140; 86403; 87040; 87070; 87086; 87205; 87426; 87641; 87804; 94640; 94664; 94760; 94762; 96372; 99285; J1650; J1815; J1956; J2270; J2405; J2930; J3480; J7050; J7512; J7626; Q9967

== ENCOUNTER → 2021-07-17 11:34 | Outpatient (BNVA) | payer OTHER, SELFPAY | PROVIDERS: Referring Provider Internal Medicine; Visit Provider Specialist | DX: G43.711 Chronic migraine without aura, intractable, with status migrainosus (principal); M54.81 Occipital neuralgia; M26.609 Unspecified temporomandibular joint disorder, unspecified side | CPT/HCPCS: 64405; 64450; 99214; 99215; J1030; J3490 ==

== ENCOUNTER → 2021-09-06 08:06 | Outpatient (BNVA) | payer OTHER, SELFPAY | PROVIDERS: Visit Provider Specialist | DX: M54.81 Occipital neuralgia (principal); G43.711 Chronic migraine without aura, intractable, with status migrainosus | CPT/HCPCS: 64405; 64450; J1030; J3490 ==

== ENCOUNTER → 2021-10-11 10:34 | Outpatient (BNVA) | payer OTHER, SELFPAY | PROVIDERS: Visit Provider Specialist | DX: G43.711 Chronic migraine without aura, intractable, with status migrainosus (principal) | CPT/HCPCS: 64615; J0585 ==

== ENCOUNTER → 2022-01-17 14:19 | Outpatient (BNVA) | payer OTHER, SELFPAY | PROVIDERS: Visit Provider Specialist | DX: G43.711 Chronic migraine without aura, intractable, with status migrainosus (principal); G24.4 Idiopathic orofacial dystonia | CPT/HCPCS: 64615; J0585 ==

== ENCOUNTER → 2022-04-11 14:08 | Outpatient (BNVA) | payer OTHER, SELFPAY | PROVIDERS: Visit Provider Specialist | DX: G43.711 Chronic migraine without aura, intractable, with status migrainosus (principal); G24.4 Idiopathic orofacial dystonia | CPT/HCPCS: 64615; J0585 ==

== ENCOUNTER → 2022-07-04 13:47 | Outpatient (BNVA) | payer OTHER, SELFPAY | PROVIDERS: PCP Family Medicine; Visit Provider Specialist | DX: G43.711 Chronic migraine without aura, intractable, with status migrainosus (principal); M26.609 Unspecified temporomandibular joint disorder, unspecified side; G24.4 Idiopathic orofacial dystonia | CPT/HCPCS: 64615; J0585 ==

== ENCOUNTER → 2022-09-26 13:53 | Outpatient (BNVA) | payer OTHER, SELFPAY | PROVIDERS: PCP Family Medicine; Visit Provider Specialist | DX: G43.711 Chronic migraine without aura, intractable, with status migrainosus (principal); G24.4 Idiopathic orofacial dystonia | CPT/HCPCS: 64615; J0585 ==

== ENCOUNTER → 2022-12-19 13:52 | Outpatient (BNVA) | payer OTHER, SELFPAY | PROVIDERS: PCP Family Medicine; Visit Provider Specialist | DX: G43.711 Chronic migraine without aura, intractable, with status migrainosus (principal) | CPT/HCPCS: 64615 ==

== ENCOUNTER 2023-02-06 09:45 | Outpatient (CLI) | payer OTHER, SELFPAY ==
--- NOTE | 2023-02-06 09:56 | MM_ITS ---
WS: [id number] BILATERAL SCREENING DIGITAL TOMOSYNTHESIS MAMMOGRAM WITH CAD HISTORY: SCREENING COMPARISON: 12/23/2018 and 12/24/2016 Bilateral CC and MLO views with tomosynthesis and synthetic mammography submitted. Computer aided det ection analyzed. Breast composition: There are scattered areas of fibroglandular density. No suspicious masses, microc alcifications or architectural distortion. Benign scattered calcifications and breast arterial calcif ications. Stable asymmetry in the central RIGHT breast. MM/[place] [id number] IMPRESSION: BI-RADS: 2-Benign FOLLOW UP: 1 Year Follow-up
== END 2023-02-06 09:46 | disposition home or self-care (01) ==
PROVIDERS: PCP Family Medicine; Visit Provider Family Medicine
DX: Z12.31 Encounter for screening mammogram for malignant neoplasm of breast (principal)
CPT/HCPCS: 77063; 77067

== ENCOUNTER → 2023-03-20 10:58 | Outpatient (BNVA) | payer OTHER, SELFPAY | PROVIDERS: PCP Family Medicine; Visit Provider Specialist | DX: G43.711 Chronic migraine without aura, intractable, with status migrainosus (principal); G24.4 Idiopathic orofacial dystonia | CPT/HCPCS: 64615; J0585 ==

== ENCOUNTER → 2023-06-19 10:33 | Outpatient (BNVA) | payer OTHER, SELFPAY | PROVIDERS: PCP Family Medicine; Visit Provider Specialist | DX: G43.711 Chronic migraine without aura, intractable, with status migrainosus (principal); G24.4 Idiopathic orofacial dystonia | CPT/HCPCS: 64615; 64642; J0585 ==

== ENCOUNTER → 2023-10-02 08:45 | Outpatient (BNVA) | payer OTHER, SELFPAY | PROVIDERS: PCP Family Medicine; Visit Provider Specialist | DX: G43.711 Chronic migraine without aura, intractable, with status migrainosus (principal); G24.4 Idiopathic orofacial dystonia | CPT/HCPCS: 64615; 64642; J0585 ==

== ENCOUNTER 2023-12-12 09:27 | Emergency (ER) | payer OTHER, SELFPAY ==
[2023-12-12 09:31] VITALS: BP 150/85; PULSE 69; RESP 17; TEMP 36.6; O2SAT 98; BMI 28.8
--- NOTE | 2023-12-12 10:53 | ED_ITS ---
HPI - Abdominal Pain 2 General: Chief Complaint: Abdominal Pain Stated Complaint: Abd pain Time Seen by Provider: 12/12/23 10:53 Source: patient Mode of arrival: ambulatory Limitations: no limitations History of Present Illness: Patient is a 63-year-old female presents to ED today with a complaint of right lower abdominal pain. Patient states over the past few months she has had intermittent pains that last a few days before subsiding on their own. She states symptoms at that time have always been tolerable. She states several days ago the pain came on and has been persistent and more severe in nature thus prompting her emergency visit today. She states she has not had a bowel movement in 4 days and when she did go it was diarrhea. She feels like she cannot eat secondary to having no room implying that her abdomen feels full and bloated. She is not running fevers. No urinary complaints. Abdominal surgeries include an appendectomy. MD elicited complaint: abdominal pain Pertinent past history: none Onset (ago): day(s) Pain Consistency: constant Location: RLQ Severity: moderate Quality: cramping and fullness Radiation: none Migration to: no migration Exacerbating factors: eating Relieving factors: nothing Associated Symptoms: Reports bloating, diarrhea and nausea; Denies chills, dysuria, fever(s), heartburn, hematochezia, hematemesis, melena and vomiting Related Data: Patient : No Review of Systems 2 Const: Denies: fever(s), chills, body aches, fatigue or malaise Card: Denies: chest pain Resp: Denies: dyspnea GI: Reports: abdominal pain, nausea, diarrhea and bloating; Denies: vomiting, hematemesis, heartburn, rectal pain, rectal itching, hematochezia or melena : Denies: flank pain, difficulty voiding, dysuria, urinary frequency, urinary urgency or urinary hesitancy Musc: Denies: neck pain, back pain, extremity pain or joint pain Skin/Breast: Denies: rash Neuro: Denies: headache(s), numbness in extremities, weakness in extremities or sensory changes PFSH ED 2 PFSH: Medical History Chronic migraine Hypertension GERD (gastroesophageal reflux disease) Surgical History History of temporal artery biopsy (09/11/20) left History of mandibular surgery H/O lumpectomy left breast History of appendectomy H/O abdominoplasty Hx of tubal ligation H/O esophagogastroduodenoscopy yrs ago H/O colonoscopy 2018 Family History Mother Bleeding disorder hemophillia CAD (coronary artery disease) Father Cancer pancreatic Other Hypertension Denies family history of Anesthesia complication Social History Smoking and tobacco/nicotine status: never used tobacco/nicotine Alcohol intake: never Substance/Drug Use: never Household members: family Marital status: Single Current occupational status: disabled Physical Exam 2 Const: COMMON NORMALS: no acute distress, patient oriented x3, no limitations, healthy appearing, alert and well nourished Eye: COMMON NORMALS: no scleral icterus Resp: COMMON NORMALS: normal respiratory effort and clear to auscultation bilaterally AUSCULTATION: clear to auscultation bilaterally Cardio: COMMON NORMALS: regular rate and regular rhythm RATE: regular rate RHYTHM: regular rhythm GI: COMMON NORMALS: Normal to inspection, nondistended, normoactive bowel sounds present, Soft to palpation, No hepatosplenomegaly present and no masses INSPECTION: Yes normal to inspection AUSCULTATION: Yes normoactive bowel sounds PALPATION: Yes Soft to palpation, Yes Tenderness to palpation present (GI) (throughout R side of abdomen-mainly RLQ), No Guarding due to palpation present (GI), No Rigid due to palpation and Yes No hepatosplenomegaly present : COMMON NORMALS: Yes no CVA tenderness BLADDER/KIDNEY EXAM: Yes no CVA tenderness Back/Pelvis: COMMON NORMALS: no CVA tenderness Neuro: COMMON NORMALS: patient oriented x3 SENSORIUM/ORIENTATION: Yes alert Course 2 Vital Signs: Vital signs: Vital Signs Temperature 97.8 F 12/12/23 09:31 Pulse Rate 69 12/12/23 09:31 Respiratory Rate 16 12/12/23 11:36 Blood Pressure 150/85 12/12/23 09:31 Pulse Oximetry 98 12/12/23 11:36 Oxygen Delivery Me thod Room Air 12/12/23 09:31 MDM - Abdominal Pain Medical Decision Making Patient appears in no acute distress. Her vital signs are stable. Blood work is unremarkable. CT scan showing no acute findings. She does have a nonspecific finding involving a portion of her cecum that is inconclusive for cecal mass. Radiologist recommended nonemergent study with oral and rectal contrast for better assessment. Will place a case management referral to get her set up with general surgery for this. [facility] also [facility] She is requesting pain medication so this will be provided. Recommend she take them with stool softener/laxative to prevent constipation. Strict return ED precautions given. Differential Diagnosis Likely abdominal pain, constipation, gastroenteritis and small bowel obstruction Medical Records I reviewed the patient's medical records. Lab Data I reviewed the patient's lab results. 12/12/23 11:24 12/12/23 11:24 Labs/Radiology: Radiology Impressions Abdomen/Pelvis CT 12/12/23 11:17 IMPRESSION: 1. No acute findings within the abdomen or pelvis. 2. Mild bilateral hydronephrosis that appears longstanding as discussed above. 3. Nonspecific findings involving portion of the cecum, inconclusive for cecal mass. Follow-up nonemergent study with oral and rectal contrast would be helpful for further assessment. 4. Mild smooth bladder wall thickening, nonspecific. Please correlate for possible cystitis. 5. Additional chronic findings Laboratory Results WBC 6.03 10^3/uL (3.29-11.43) 12/12/23 11:24 RBC 4.64 10^6/uL (3.85-5.65) 12/12/23 11:24 Hgb 13.30 g/dL (11.27-16.99) 12/12/23 11:24 Hct 41.1 % (36-47) 12/12/23 11:24 MCV 88.6 fl (85-98) 12/12/23 11:24 MCH 28.7 pg (27-33) 12/12/23 11:24 MCHC 32.4 g/dL (30-55) 12/12/23 11:24 RDW 13.9 % (12.1-15.1) 12/12/23 11:24 Plt Count 194 10^3/cmm (157-399) 12/12/23 11:24 MPV 10.6 fL (7.4-10.4) H 12/12/23 11:24 Neut % (Auto) 58.4 % 12/12/23 11:24 Lymph % (Auto) 33.2 % 12/12/23 11:24 Young % (Auto) 6.0 % 12/12/23 11:24 Eos % (Auto) 1.3 % 12/12/23 11:24 Baso % (Auto) 0.8 % 12/12/23 11:24 Neut # (Auto) 3.52 10^3/uL (1.8-7.7) 12/12/23 11:24 Lymph # (Auto) 2.0 10^3/uL (0.8-4.8) 12/12/23 11:24 Young # (Auto) 0.4 10^3/uL (0.2-0.9) 12/12/23 11:24 Eos # (Auto) 0.1 10^3/uL (0.0-0.8) 12/12/23 11:24 Baso # (Auto) 0.1 10^3/uL (0.0-0.1) 12/12/23 11:24 Nucleated RBC % (auto) 0 % 12/12/23 11: Nucleated RBCs # 0.0 /100WBC 12/12/23 11:24 Sodium 143 mmol/L (136-145) 12/12/23 11:24 Potassium 4.3 mmol/L (3.5-5.1) 12/12/23 11:24 Chloride 108 mmol/L (98-107) H 12/12/23 11:24 Carbon Dioxide 25 mmol/L (22-29) 12/12/23 11:24 Anion Gap 14.3 (5-19) 12/12/23 11:24 BUN 11 mg/dL (8-23) 12/12/23 11:24 Creatinine 0.8 mg/dL (0.5-0.9) 12/12/23 11:24 GFR Calculation 72.2 mL/min (90-130) L 12/12/23 11:24 Glucose 92 mg/dL (65-115) 12/12/23 11:24 Calculated Osmolality 295 mOsm/kg (285-295) 12/12/23 11:24 Calcium 9.0 mg/dL (8.5-10.5) 12/12/23 11:24 Total Bilirubin 0.3 mg/dL (0.15-1.2) 12/12/23 11:24 AST 13 U/L (0-32) 12/12/23 11:24 ALT 10 U/L (0-33) 12/12/23 11:24 Alkaline Phosphatase 65 U/L (35-105) 12/12/23 11:24 Total Protein 7.1 g/dL (6.6-8.7) 12/12/23 11:24 Albumin 4.2 g/dL (3.5-5.2) 12/12/23 11:24 Globulin 2.9 g/dL (1.3-4.6) 12/12/23 11:24 Lipase 30 U/L (13-60) 12/12/23 11:24 Urine Color Light yellow (Yellow) 12/12/23 11:10 Urine Appearance Clear (CLEAR) 12/12/23 11:10 Urine pH 5 (5-7) 12/12/23 11:10 Ur Specific Richardson 1.010 (1.005-1.030) 12/12/23 11:10 Urine Protein Neg (Negative) 12/12/23 11:10 Urine Glucose (UA) Norm (Normal) 12/12/23 11:10 Urine Ketones Negative (Negative) 12/12/23 11:10 Urine Blood Neg (Negative) 12/12/23 11:10 Urine Nitrate Negative (Negative) 12/12/23 11:10 Urine Bilirubin Neg (Negative) 12/12/23 11:10 Urine Urobilinogen Neg mg/dL (Negative) 12/12/23 11:10 Ur Leukocyte Esterase 1+ (Negative) H 12/12/23 11:10 Urine RBC 0-4 /hpf (0-2) H 12/12/23 11:10 Urine WBC 5-10 /hpf (0-5) H 12/12/23 11:10 Ur Squamous Epith Cells 10-15 /hpf (0-5) H 12/12/23 11:10 Amorphous Sediment Not Reportable 12/12/23 11:10 Urine Bacteria 1+ /hpf (NONE) H 12/12/23 11:10 Urine Mucus Trace /hpf 12/12/23 11:10 All radiology interpretation(s) finalized by discharge Discharge Plan Discharge Patient Disposition: Home Clinical Impression: Abnormal abdominal CT scan Abdominal pain Qualifiers: Abdominal location: right lower quadrant Qualified Code(s): R10.31 - Right lower quadrant pain Condition: Stable Prescriptions: New hydrocodone-acetaminophen 5-325 mg tablet 1 tab PO Q6H PRN (Reason: pain) Qty: 10 0RF No Action omeprazole 20 mg capsule,delayed release(DR/EC) 20 mg PO QAM alendronate 10 mg tablet 10 mg PO QAM benztropine 2 mg tablet 2 mg PO BID PRN (Reason: unknown) docusate sodium 50 mg capsule 200 mg PO QAM olanzapine [Zyprexa] 20 mg tablet 20 mg PO DAILY atorvastatin 40 mg tablet 20 mg PO QPM Rx Instructions: dose change ondansetron HCl 4 mg tablet 4 mg PO Q8H PRN (Reason: NAUSEA/VOMITING) losartan 25 mg tablet 12.5 mg PO DAILY paroxetine HCl [Paxil] 40 mg tablet 20 mg PO DAILY topiramate 200 mg tablet 200 mg PO DAILY sulfamethoxazole-trimethoprim 800-160 mg Tablet 1 tab PO DAILY 30 Days Qty: 30 1RF pantoprazole 40 mg Tablet,Delayed Release (Dr/Ec) 40 mg PO DAILY 30 Days 3RF albuterol sulfate 90 mcg/actuation HFA aerosol inhaler 2 inh inhalation QID Qty: 8.5 3RF (DME) Accu-Chek Jennifer Plus Meter Misc See Rx Instructions .Route Qty: 1 0RF Rx Instructions: As directed (DME) Lancets, Super Thin Misc See Rx Instructions .Route Qty: 200 0RF Rx Instructions: As directed Discharge Orders: Discharge ED (Routine); Ordered 12/12/23 Ordered By: Roselyn Randhawa Referrals: Taty Martínez MD [Primary Care Provider] - Patient Instructions: Abdominal Pain (ED), Opioid Safety, Pain Management Activity Restrictions/Additional Instructions: As we discussed your CT scan showed some nonspecific findings involving your cecum. Radiologist is recommending that you have a nonemergent follow-up study with oral and rectal contrast for better assessment. I have placed a referral with general surgery to get you follow-up for this. We also discussed about possibly following up through your provider at the [facility]. You have requested pain medications to help with your discomfort to these have been provided. Please take sparingly. You may also try to take a half a tablet to see if this helps with pain. You need to take these with a stool softener or laxative to help prevent constipation. You need to return to the emergency department for worsening abdominal pain, fevers, inability to pass stool or gas, generally feeling worse or unwell, or any other concerns you may have. Coding Level of Care Code ED Local Hazmat Driver for Halle Ibrahim
--- NOTE | 2023-12-12 10:55 | PC.PHAR ---
[facility] am
--- NOTE | 2023-12-12 11:17 | CTR_ITS ---
PROCEDURE INFORMATION: Exam: CT Abdomen And Pelvis With Contrast Exam date and time: 12/12/2023 11:58 AM Age: 63 years old Clinical indication: Constipation; Abdominal pain; Localized; Right lower quadrant (rlq); Prior surgery; Surgery date: 6+ months; Surgery type: Appy; Additional info: R lower abdominal pain TECHNIQUE: Imaging protocol: Computed tomography of the abdomen and pelvis with contrast. Radiation optimization: All CT scans at this facility use at least one of these dose optimization techniques: automated exposure control; mA and/or kV adjustment per patient size (includes targeted exams where dose is matched to clinical indication); or iterative reconstruction. Contrast material: OMNI 350; Contrast volume: 100 ml; Contrast route: INTRAVENOUS (IV); COMPARISON: CT angio chest PE protcl [id number] 07/09/2021 8:22 PM RADIATION DOSE METRICS: Total DLP (mGy-cm): 812.38 FINDINGS: Lungs: There are minor atelectatic changes at the lung bases. Liver: Few small hypodensities right left lobes the liver likely representing small liver cysts. Gallbladder and bile ducts: Normal. No calcified stones. No ductal dilation. Pancreas: Pancreatic lipomatosis which is more apparent within the pancreatic head. No masses or inflammatory changes detected. Main pancreatic duct is not dilated. Spleen: Normal. No splenomegaly. Adrenal glands: Normal. No mass. Kidneys and ureters: Mild bilateral hydronephrosis that appears due to combination of patulous extrarenal collecting system and mild UPJ stenosis. Stomach and bowel: Cecum is situated low within the pelvis. There is prominent lipomatous changes of the ileocecal valve, often incidental. There is localized mural thickening or prominence of mucosal folds involving the cecum just below the ileocecal junction without discrete mass of uncertain significance. There are scattered diverticuli large bowel without evidence of acute diverticulitis. Appendix: Appendix cannot be identified with confidence. However no findings suggestive of acute appendicitis. Intraperitoneal space: Unremarkable. No free air. No significant fluid collection. Vasculature: Unremarkable. No abdominal aortic aneurysm. Lymph nodes: Few small lymph nodes within the right lower quadrant and upper pelvis.. No enlarged lymph nodes. Urinary bladder: Mild smooth bladder wall thickening, nonspecific. Reproductive: Unremarkable as visualized. Bones/joints: Unremarkable. No acute fracture. Soft tissues: Unremarkable. CT/CT abdomen pelvis w con* [id number] IMPRESSION: 1. No acute findings within the abdomen or pelvis. 2. Mild bilateral hydronephrosis that appears longstanding as discussed above. 3. Nonspecific findings involving portion of the cecum, inconclusive for cecal mass. Follow-up nonemergent study with oral and rectal contrast would be helpful for further assessment. 4. Mild smooth bladder wall thickening, nonspecific. Please correlate for possible cystitis. 5. Additional chronic findings
[2023-12-12 11:28] LABS: Add Urine Microscopic? YES; Bilirubin Urine Neg (Negative); Blood Urine Neg (Negative); Glucose Urine UA Norm (Normal); Ketones Urine Negative (Negative); Leukocyte Esterase Urine 1+ (Negative); Nitrate Urine Negative (Negative); Protein Urine Neg (Negative); Urine Appearance Clear (CLEAR); Urine Color Light yellow (Yellow); Urobilinogen Urine Neg (Negative); pH Urine 5 (5-7)
[2023-12-12 11:30] LABS: RBC Urine 0-4 /hpf (0-2)
[2023-12-12 11:31] LABS: Add Urine Culture? No; Bacteria Urine 1+ /hpf; Mucus Urine TRACE /hpf
[2023-12-12 11:34] LABS: Basophils # 0.1 10^3/uL (0.0-0.1); Basophils % 0.8 %; Eosinophils # 0.1 10^3/uL (0.0-0.8); Eosinophils % 1.3 %; Hematocrit 41.1 % (36-47); Lymphocytes % 33.2 %; Mean Corpuscular HGB Conc 32.4 g/dL (30-55); Mean Corpuscular Hemoglobin 28.7 pg (27-33); Mean Corpuscular Volume 88.6 fl (85-98); Mean Platelet Volume 10.6 fL (7.4-10.4); Monocytes # 0.4 10^3/uL (0.2-0.9); Neutrophils # 3.52 10^3/uL (1.8-7.7); Neutrophils % 58.4 %; Nucleated Red Blood Cells % 0 %; Platelet Count 194 10^3/cmm (157-399); Red Blood Count 4.64 10^6/uL (3.85-5.65); Red Cell Distribution Width 13.9 % (12.1-15.1); White Blood Count 6.03 10^3/uL (3.29-11.43)
[2023-12-12 11:36] VITALS: RESP 16; O2SAT 98
[2023-12-12] MEDS: morphine 4 mg/mL SDV 1 mL IVP (11:36)
[2023-12-12] MEDS: ondansetron 2 mg/ML SDV 2 mL 4 MG IVP (11:36)
[2023-12-12] MEDS: sodium chloride 0.9% 1,000 ML 999 ML IV (11:42)
[2023-12-12 11:49] LABS: Alanine Aminotransferase 10 U/L (0-33); Albumin Level 4.2 g/dL (3.5-5.2); Alkaline Phosphatase 65 U/L (35-105); Anion Gap 14.3 (5-19); Aspartate Amino Transferase 13 U/L (0-32); Blood Urea Nitrogen 11 mg/dL (8-23); Carbon Dioxide 25 mmol/L (22-29); Chloride 108 mmol/L (98-107); Creatinine Clr Calc Pharmacy 73.5592; Globulin 2.9 g/dL (1.3-4.6); Glomerular Filtration Rate 72.2 mL/min (90-130); Glucose 92 mg/dL (65-115); Lipase 30 U/L (13-60); Osmolality Calculated 295 mOsm/kg (285-295); Potassium 4.3 mmol/L (3.5-5.1); Sodium 143 mmol/L (136-145); Total Bilirubin 0.3 mg/dL (0.15-1.2); Total Protein 7.1 g/dL (6.6-8.7)
[2023-12-12] MEDS: iohexol 350 mg/mL 500 mL Btl (per mL) IV (11:57)
[2023-12-12 13:17] VITALS: BP 150/85; PULSE 69; RESP 16; TEMP 36.6; O2SAT 98
--- NOTE | 2023-12-12 14:05 | DCPLANNER ---
A message was sent to general surgery on 12/12/23 at [id number]. [facility] to contact patient for appt
== END 2023-12-12 13:18 | disposition home or self-care (01) ==
PROVIDERS: Emergency Provider Physician Assistant; PCP Family Medicine
DX: R10.31 Right lower quadrant pain (principal); R93.5 Abnormal findings on diagnostic imaging of other abdominal regions, including retroperitoneum; I10 Essential (primary) hypertension
CPT/HCPCS: 74177; 80053; 81001; 83690; 85025; 96361; 96374; 96375; 99285; J2270; J2405; J7030; Q9967

== ENCOUNTER → 2023-12-24 08:48 | Outpatient (BNVA) | payer OTHER, SELFPAY | PROVIDERS: PCP Family Medicine; Referring Provider Physician Assistant; Visit Provider Surgery | DX: R93.3 Abnormal findings on diagnostic imaging of other parts of digestive tract | CPT/HCPCS: 99204 ==

== ENCOUNTER → 2024-01-15 09:55 | Outpatient (BNVA) | payer OTHER, SELFPAY | PROVIDERS: PCP Family Medicine; Visit Provider Specialist | DX: G43.711 Chronic migraine without aura, intractable, with status migrainosus (principal); G24.4 Idiopathic orofacial dystonia | CPT/HCPCS: 64615; J0585 ==

== ENCOUNTER 2024-03-23 06:35 | Day surgery (SDC) | payer OTHER, SELFPAY ==
--- NOTE | 2024-03-23 06:01 | W.PM.OPSFHP ---
Same Day Surgery H&P Indication for Procedure/HPI DATE OF PROCEDURE: March 23, 2024 CHIEF COMPLAINT/INDICATIONFOR SURGICAL PROCEDURE: cecal thickening PREOP DIAGNOSIS: abnormal CT of the abdomen PLANNED PROCEDURE: Operation Date: 03/23/24 07:40 Proposed Procedures p Colonoscopy 59205, G0105, Z12.11(Not Applicable) - Carl Mejia MD Medications/Allergies* Home Medications Medication Instructions Recorded Confirmed Type alendronate 10 mg tablet 10 mg PO QAM 04/21/20 03/18/24 History olanzapine 20 mg tablet (Zyprexa) 20 mg PO DAILY 04/21/20 03/18/24 History omeprazole 20 mg capsule,delayed 20 mg PO QAM 04/21/20 03/18/24 History release paroxetine HCl 40 mg tablet (Paxil) 60 mg PO DAILY 09/08/20 03/18/24 History topiramate 200 mg tablet 200 mg PO DAILY 07/10/21 03/18/24 History atorvastatin 80 mg tablet 80 mg PO QPM 12/12/23 03/18/24 History cholecalciferol (vitamin D3) 50 50 mcg PO DAILY 12/12/23 03/18/24 History mcg (2,000 unit) tablet docusate sodium 100 mg capsule 200 mg PO BID PRN Constipation 12/12/23 03/18/24 History losartan 25 mg tablet 12.5 mg PO DAILY 12/12/23 03/18/24 History oxybutynin chloride 5 mg 5 mg PO DAILY 12/12/23 03/18/24 History tablet,extended release 24 hr sumatriptan succinate 50 mg tablet 50 mg PO DAILY PRN Headache 12/12/23 03/18/24 History trazodone 100 mg tablet 100 mg PO BEDTIME 12/12/23 03/18/24 History Allergies/Adverse Reactions Allergy/AdvReac Type Severity Reaction Status Date / Time Cephalosporins Allergy ALGY-Anaphy Verified 03/18/24 11:40 laxis Penicillins Allergy ALGY-Anaphy Verified 03/18/24 11:40 laxis Pertinent History/Comorbid Conditions* Medical History (Updated 12/24/23 @ 16:08 by Carl Mejia MD) Chronic migraine Hypertension GERD (gastroesophageal reflux disease) Surgical History (Updated 09/11/20 @ 09:08 by Wilian Arredondo MD) History of temporal artery biopsy (09/11/20) left History of mandibular surgery H/O lumpectomy left breast History of appendectomy H/O abdominoplasty Hx of tubal ligation H/O esophagogastroduodenoscopy yrs ago H/O colonoscopy 2018 Family History (Updated 09/04/20 @ 11:12 by Evie Syed LPN) CAD (coronary artery disease) Mother Bleeding disorder Mother hemophillia Cancer Father pancreatic Hypertension Denies family history of Anesthesia complication Social History Smoking and tobacco/nicotine status: never used tobacco/nicotine Alcohol intake: never Substance/Drug Use: never Household members: family Marital status: Single Current occupational status: disabled Pertinent Exam Findings alert, oriented x 3, clear to auscultation bilaterally and regular rate & rhythm Recommendations Surgery/Procedure today Coding Level of Care Code Acute Code for [facility] [place]
[2024-03-23 06:50] VITALS: BP 137/85; PULSE 75; RESP 18; TEMP 36.4; O2SAT 98; BMI 29.1
--- NOTE | 2024-03-23 07:23 | P.ANESASSM_ITS ---
Pre-Anesthetic Assessment Height/Weight: Height 1.65 m Weight 79.379 kg Temp Pulse Resp BP Pulse Ox O2 Del Method 97.6 F 75 18 137/85 98 Room Air 03/23/24 06:50 03/23/24 06:50 03/23/24 06:50 03/23/24 06:50 03/23/24 06:50 03/23/24 06:50 Preop Diagnosis: abnormal CT of the abdomen Operation Date: 03/23/24 07:40 Proposed Procedures p Colonoscopy 05091, G0105, Z12.11(Not Applicable) - Carl Mejia MD Familial anesthetic complications: N/A Was Beta Lisa taken within 24 hours: N/A Was Clonidine taken within 24 hours: N/A Last intake: Intake Last Liquid Date 03/22/24 Last Liquid Time 23:00 Last Solid Date 03/21/24 Last Solid Time 15:00 Social No alcohol and No tobacco Exam alert, oriented x 3, clear to auscultation bilaterally and regular rate & rhythm Airway Submandibular: within normal limits Cervical ROM: within normal limits Mallampati: Class II Dentition: false History/ROS No significant history except as noted and No significant complaints Pulmonary None reported script for albuterol post covid 2021, denies use. CV/HEM Hypertension None reported Hepatic None reported GI Gastroesophageal Reflux Disease Metabolic Diabetes Mellitus (pre-diabetic) and Hyperlipidemia [facility] None reported Neuropsych Seizure (Last seizure stated 17 years ago. No diagnosis.) Schizophrenic Anesthetic Plan ASA status: 2 Anesthesia: MAC Risk of > 500 ml blood loss (7ml/kg in children): No Medications/Allergies Home Medications Medication Instructions Recorded Confirmed Last Taken Type alendronate 10 mg tablet 10 mg PO QAM 04/21/20 03/23/24 03/21/24 History olanzapine 20 mg tablet (Zyprexa) 20 mg PO DAILY 04/21/20 03/23/24 03/21/24 History omeprazole 20 mg capsule,delayed 20 mg PO QAM 04/21/20 03/23/24 03/21/24 History release paroxetine HCl 40 mg tablet (Paxil) 60 mg PO DAILY 09/08/20 03/23/24 03/21/24 History topiramate 200 mg tablet 200 mg PO DAILY 07/10/21 03/23/24 03/21/24 History albuterol sulfate 90 mcg/actuation 2 inh inhalation QID #8.5 grams 07/13/21 03/23/24 03/18/24 Rx aerosol inhaler blood-glucose meter (Accu-Chek #1 ea 07/16/21 03/23/24 Unknown Rx Jennifer Plus Meter) lancets (Lancets, Super Thin) #200 ea 07/16/21 03/23/24 Unknown Rx atorvastatin 80 mg tablet 80 mg PO QPM 12/12/23 03/23/24 03/21/24 History cholecalciferol (vitamin D3) 50 50 mcg PO DAILY 12/12/23 03/23/24 03/21/24 History mcg (2,000 unit) tablet docusate sodium 100 mg capsule 200 mg PO BID PRN Constipation 12/12/23 03/23/24 03/21/24 History losartan 25 mg tablet 12.5 mg PO DAILY 12/12/23 03/23/24 03/21/24 History oxybutynin chloride 5 mg 5 mg PO DAILY 12/12/23 03/23/24 03/21/24 History tablet,extended release 24 hr sumatriptan succinate 50 mg tablet 50 mg PO DAILY PRN Headache 12/12/23 03/23/24 03/17/24 History trazodone 100 mg tablet 100 mg PO BEDTIME 12/12/23 03/23/24 03/21/24 History Allergies Allergy/AdvReac Type Severity Reaction Status Date / Time Cephalosporins Allergy ALGY-Anaphy Verified 03/18/24 11:40 laxis Penicillins Allergy ALGY-Anaphy Verified 03/18/24 11:40 laxis [facility] Anesthesia Medical History Chronic migraine Hypertension GERD (gastroesophageal reflux disease) Surgical History History of temporal artery biopsy (09/11/20) left History of mandibular surgery H/O lumpectomy left breast History of appendectomy H/O abdominoplasty Hx of tubal ligation H/O esophagogastroduodenoscopy yrs ago H/O colonoscopy 2018 Family History Mother Bleeding disorder hemophillia CAD (coronary artery disease) Father Cancer pancreatic Other Hypertension Denies family history of Anesthesia complication Social History Smoking and tobacco/nicotine status: never used tobacco/nicotine Alcohol intake: never Substance/Drug Use: never Household members: family Marital status: Single Current occupational status: disabled Data Anesthesia Cardiac Studies: No Data to Display
[2024-03-23] MEDS: sodium chloride 0.9% 1,000 ML 30 ML IV (07:24)
[2024-03-23 08:35] VITALS: BP 113/66; PULSE 51; RESP 18; TEMP 36.4; O2SAT 95
[2024-03-23 08:50] VITALS: BP 122/70; PULSE 59; RESP 18; O2SAT 95
--- NOTE | 2024-03-23 13:59 | ANE.PACU2 ---
Inpatient post-anesthesia follow up: Airway intact: Yes Vital signs: Temperature 97.5 F Pulse Rate 59 Respiratory Rate 18 Blood Pressure 122/70 Pulse Oximetry 95 Oxygen Delivery Me thod Room Air Oxygen Flow Rate Fraction of Inspir ed Oxygen Hydration adequate: Yes Nausea and vomiting: No Pain level: 2 Mental status: Baseline
== END 2024-03-23 09:15 | disposition home or self-care (01) ==
PROVIDERS: PCP Family Medicine; Visit Provider Surgery
PROC: 0DJD8ZZ Inspection of Lower Intestinal Tract, Via Natural or Artificial Opening Endoscopic (ICD-10-PCS; CPT 45378; principal; 2024-03-23 07:40)
DX: Z12.11 Encounter for screening for malignant neoplasm of colon (principal); D12.5 Benign neoplasm of sigmoid colon; D12.8 Benign neoplasm of rectum; I10 Essential (primary) hypertension; K21.9 Gastro-esophageal reflux disease without esophagitis; E11.9 Type 2 diabetes mellitus without complications; E78.5 Hyperlipidemia, unspecified
CPT/HCPCS: 45380; 45385; 88305; J2371; J2704; J7030

== ENCOUNTER → 2024-04-14 08:04 | Outpatient (BNVA) | payer OTHER, SELFPAY | PROVIDERS: PCP Family Medicine; Visit Provider Surgery | DX: Z09 Encounter for follow-up examination after completed treatment for conditions other than malignant neoplasm (principal) | CPT/HCPCS: 99213 ==

== ENCOUNTER → 2024-04-15 09:30 | Outpatient (BNVA) | payer OTHER, SELFPAY | PROVIDERS: PCP Family Medicine; Visit Provider Specialist | DX: G43.711 Chronic migraine without aura, intractable, with status migrainosus (principal); G24.4 Idiopathic orofacial dystonia; M26.609 Unspecified temporomandibular joint disorder, unspecified side; R22.0 Localized swelling, mass and lump, head | CPT/HCPCS: 64615; 99213; J0585 ==

== ENCOUNTER 2024-04-21 08:57 | Outpatient (CLI) | payer OTHER, SELFPAY ==
--- NOTE | 2024-04-21 09:00 | CT_ITS ---
WS: [id number] CT FACIAL BONES TECHNIQUE: Noncontrast facial bones with coronal and sagittal reformatted images. 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 DLP: 555.[address] scans at [facility] use at least one of these dose optimization techniques: automated e xposure control; mA and/or kV adjustment per patient size (includes targeted exams where dose is matc hed to clinical indication); or iterative reconstruction. FINDINGS: Postoperative changes prior mandibular plate and screw fixation. Postoperative changes mandibular con dyle reconstruction with plate and screw fixation and TMJ prosthesis. Osteopenia. Protrusion of a few of the mandibular fixation screws through the lingual cortex into the underlying soft tissues worse on the LEFT. Most protuberant LEFT mandibular fixation screw extends 8.6 mm into the underlying masti cator space and medial pterygoid Parotid glands and submandibular glands appear normal. Normal posterior oropharynx and nasopharynx. N ormal parapharyngeal fat. No evidence of facial cellulitis or abscess. Paranasal sinuses and mastoid air cells are well aerated. The visualized upper cervical spine appears normal. CT/CT facial bones wo con* [id number] IMPRESSION: Some images degraded due to beam hardening artifact from hardware 1. Prior postoperative changes mandible reconstruction with TMJ prosthesis. No evidence of hardware loosening. 2. Protrusion of a a few of the mandibular fixation screws extending through t he lingual cortex worse on the LEFT by approximately 8.6 mm. A few of the right -sided fixation screws also breach the lingual cortex. 3. No evidence of facial cellulitis or drainable abscess. 4. Salivary glands appear normal. 5. Paranasal sinuses and mastoid air cells well aerated. 6. No other acute findings.
== END 2024-04-21 08:58 | disposition home or self-care (01) ==
LOC: RAD 08:57
PROVIDERS: PCP Family Medicine; Visit Provider Specialist
DX: G24.4 Idiopathic orofacial dystonia (principal); M26.609 Unspecified temporomandibular joint disorder, unspecified side
CPT/HCPCS: 70486

== ENCOUNTER → 2024-05-06 08:45 | Outpatient (BNVA) | payer OTHER, SELFPAY | PROVIDERS: PCP Family Medicine; Visit Provider Specialist | DX: R55 Syncope and collapse (principal); G43.711 Chronic migraine without aura, intractable, with status migrainosus; G24.4 Idiopathic orofacial dystonia; R07.9 Chest pain, unspecified | CPT/HCPCS: 64642; 99214; 99215; J0585 ==

== ENCOUNTER 2024-06-30 08:39 | Outpatient (CLI) | payer OTHER, SELFPAY ==
[2024-06-30 08:55] VITALS: BMI 29.7
--- NOTE | 2024-06-30 08:59 | NMCV_ITS ---
NM calista perf SPECT r/s* [id number] Annie Oreilly Age: 63 Gender: F : 1960 Exam Date: 06/30/2024 10:01 Ordering Phys: Ute Turk MD Technologist: ALLIE Nolasco Exam Location: [facility] Indications: cp STRESS TEST Please see separate stress test report in [facility] for full findings IMAGE PROTOCOL Rest/Stress 1 Lexiscan Day Radiopharmaceutical Dose (mCi) Administration Site Administered by Rest: Tc-99m 11 IV Isabel Alcocer, TANNERY WORKER Sestamibi Stress:Tc-99m 33 IV Isabel Deckergle, TANNERY WORKER Sestamibi Rest: 30-Jun-2024 60 Discovery 630 Stress: 30-Jun-2024 30 Discovery 630 0.4mg Lexiscan. Images obtained in supine and prone position. SPECT RESULTS Technical Quality: Good Raw Data Analysis: , Breast attenuation Image Corrections: No attenuation or motion correction applied Summed Stress Score: 1 Summed Rest Score: 0 Summed Difference Score: 1 PERFUSION FINDINGS SPECT images demonstrate homogeneous tracer distribution throughout the myocardium. FUNCTIONAL RESULTS (calculated via Gated SPECT) Stress Image LV EF (%): 94 Stress EDV (mL):53 TID: 0.62 Stress ESV (mL):3 FUNCTIONAL FINDINGS: There is normal left ventricular systolic function. IMPRESSIONS Myocardial perfusion imaging is normal. Colten Carpio MD (Electronically Signed) Final Date: 30 June 2024 13:12 S
--- NOTE | 2024-06-30 08:59 | ECG_ITS ---
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 Interpretive Statements LEXISCAN SESTAMIBI STRESS TEST Procedure: At the baseline, the blood pressure was 122/79 mmHg with a heart rate of 70 bpm. The electrocardiogram showed normal sinus rhythm, normal axis with normal ST and T's. The Lexiscan was infused over a period of 20 seconds. A total of 0.4 mg of Lexiscan was infused. The stress phase was continued for a total of 5 minutes. Heart rate was at the end of stress phase was 81 bpm and a blood pressure of 116/64 mmHg. The EKG at the peak infusion revealed normal sinus rhythm with no significant ST-T wave changes. Sestamibi was injected 20 seconds after the Lexiscan infusion. Blood pressure at the end of recovery phase was 126/69 mmHg with a heart rate of 80 bpm. Conclusion: 1. Normal EKG response to Lexiscan infusion 2. No Lexiscan induced chest pain or cardiac arrhythmia. 3. Normal blood pressure and heart rate response. 4. Sestamibi/sestamibi perfusion scan pending; see separate report. Electronically Signed On 07-02-2024 20:21:03 CDT by Nahid Nash M.D. [id number]
--- NOTE | 2024-06-30 11:03 | SUR.PREOP ---
PRE WALK Patient unable to tolerate the demands of the treadmill. MD notified of the change. Verbal okay to change to lexiscan today. Patient okay with the change. Noted.
[2024-06-30] MEDS: regadenoson 0.4 Mg/5 ml Syringe IVP (11:14)
[2024-06-30 11:28] VITALS: BP 126/78; PULSE 82
== END 2024-06-30 08:40 | disposition home or self-care (01) ==
PROVIDERS: PCP Family Medicine; Visit Provider Specialist
DX: R07.9 Chest pain, unspecified (principal); R55 Syncope and collapse
CPT/HCPCS: 36415; 78452; 93017; 96374; A9500; J2785

== ENCOUNTER → 2024-07-09 09:11 | Outpatient (BNVA) | payer OTHER, SELFPAY | PROVIDERS: PCP Family Medicine; Visit Provider Specialist | DX: R07.9 Chest pain, unspecified (principal); R55 Syncope and collapse; G43.711 Chronic migraine without aura, intractable, with status migrainosus; G24.4 Idiopathic orofacial dystonia | CPT/HCPCS: 64615; 99212; J0585 ==

== ENCOUNTER 2024-07-28 17:44 | Emergency (ER) | payer OTHER, SELFPAY ==
[2024-07-28] VITALS (10 sets, daily range): BP systolic 104–134; BP diastolic 50–91; PULSE 79–88; RESP 16–20; TEMP 37; O2SAT 91–97; BMI 30.9
--- NOTE | 2024-07-28 17:55 | ECG_ITS ---
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 Measurements Intervals [place] Rate: 81 P: 30 WV: 162 QRS: 11 QRSD: 86 T: 33 QT: 340 QTc: 395 Interpretive Statements SINUS RHYTHM PROBABLE INFERIOR MYOCARDIAL INFARCTION , OF INDETERMINATE AGE [35 ms Q WAVE IN II/aVF] Compared to ECG 05/30/2021 20:08:54 Myocardial infarct finding now present T-wave abnormality no longer present Heavy baseline artifact Electronically Signed On 07-29-2024 21:57:00 AIR POLLUTION CONTROL ENGINEER by Anai Connolly M.D. [id number]
--- NOTE | 2024-07-28 18:00 | XRR_ITS ---
PROCEDURE INFORMATION: Exam: XR Chest Exam date and time: 07/28/2024 6:21 PM Age: 63 years old Clinical indication: Chest wall pain; Additional info: Chest pain TECHNIQUE: Imaging protocol: Radiologic exam of the chest. Views: 1 view. COMPARISON: CT angio chest PE protcl [id number] 07/09/2021 8:22 PM FINDINGS: Lungs: Unremarkable. No consolidation. Pleural spaces: Unremarkable. No pleural effusion. No pneumothorax. Heart/Mediastinum: Unremarkable. No cardiomegaly. Bones/joints: Unremarkable. XR/XR chest 1V portable [id number] IMPRESSION: No acute findings.
--- NOTE | 2024-07-28 18:54 | W.ED.SOB ---
HPI - SOB/Dyspnea General: Chief Complaint: Shortness of Breath/Dyspnea Stated Complaint: SOB, congestion, chest burning Time Seen by Provider: 07/28/24 18:01 History of Present Illness: HPI Narrative: Patient presents to the ER with complaints of intermittent chest pain x 1 day and shortness of breath and productive coughing up green mucus for about the last week. Patient denies overt fever but says she has had chills. Patient is not on oxygen. Related Data Home Medications Medication Instructions Recorded Confirmed alendronate 10 mg tablet 10 mg PO QAM 04/21/20 07/09/24 olanzapine 20 mg tablet (Zyprexa) 20 mg PO DAILY 04/21/20 07/09/24 omeprazole 20 mg capsule,delayed 20 mg PO QAM 04/21/20 07/09/24 release topiramate 200 mg tablet 200 mg PO DAILY 07/10/21 07/09/24 atorvastatin 80 mg tablet 80 mg PO QPM 12/12/23 07/09/24 cholecalciferol (vitamin D3) 50 50 mcg PO DAILY 12/12/23 07/09/24 mcg (2,000 unit) tablet docusate sodium 100 mg capsule 200 mg PO BID PRN Constipation 12/12/23 07/09/24 losartan 25 mg tablet 12.5 mg PO DAILY 12/12/23 07/09/24 oxybutynin chloride 5 mg 5 mg PO DAILY 12/12/23 07/09/24 tablet,extended release 24 hr sumatriptan succinate 50 mg tablet 50 mg PO DAILY PRN Headache 12/12/23 07/09/24 trazodone 100 mg tablet 100 mg PO BEDTIME 12/12/23 07/09/24 paroxetine HCl 30 mg tablet mg PO 07/09/24 07/09/24 Previous Rx's Medication Instructions Recorded albuterol sulfate 90 mcg/actuation 2 inh inhalation QID #8.5 grams 07/13/21 aerosol inhaler blood-glucose meter (Accu-Chek #1 ea 07/16/21 Jennifer Plus Meter) lancets (Lancets, Super Thin) #200 ea 07/16/21 polyethylene glycol 3350 17 17 g PO DAILY 2 weeks #238 grams 04/14/24 gram/dose oral powder (Miralax) albuterol sulfate 90 mcg/actuation 2 inh inhalation Q6H PRN shortness 07/28/24 aerosol inhaler of breath or wheezing #8.5 grams prednisone 50 mg tablet 50 mg PO DAILY #5 tabs 07/28/24 Allergies Allergy/AdvReac Type Severity Reaction Status Date / Time Cephalosporins Allergy ALGY-Anaphy Verified 07/09/24 09:42 laxis Penicillins Allergy ALGY-Anaphy Verified 07/09/24 09:42 laxis Review of Systems General: Reports: 10 or more systems reviewed and unremarkable except in HPI and below PFSH ED PFSH: Medical History Chronic migraine Hypertension GERD (gastroesophageal reflux disease) Surgical History History of temporal artery biopsy (09/11/20) left History of mandibular surgery H/O lumpectomy left breast History of appendectomy H/O abdominoplasty Hx of tubal ligation H/O esophagogastroduodenoscopy yrs ago H/O colonoscopy 2018 Family History Mother Bleeding disorder hemophillia CAD (coronary artery disease) Father Cancer pancreatic Other Hypertension Denies family history of Anesthesia complication Social History Smoking and tobacco/nicotine status: never used tobacco/nicotine Alcohol intake: never Substance/Drug Use: never Household members: family Marital status: Single Current occupational status: disabled Physical Exam Const: COMMON NORMALS: no acute distress, average body habitus, patient oriented x3, no limitations, healthy appearing, alert and well nourished HENMT: COMMON NORMALS: normocephalic, atraumatic, hearing grossly normal bilaterally, external ears normal, Normal external nose present and moist oral mucous membranes HEAD & SCALP: normocephalic and atraumatic NOSE: Normal external nose present EXTERNAL EAR: Yes external ears normal Neck/C-Spine: COMMON NORMALS: no JVD Chest: COMMONS NORMALS: normal inspection of the chest and normal palpation of entire chest wall Resp: COMMON NORMALS: normal respiratory effort, No retractions and No use of accessory muscles; negative for clear to auscultation bilaterally (Diffuse wheezing and rhonchi) AUSCULTATION: not clear to auscultation bilaterally (Diffuse wheezing and rhonchi) Cardio: COMMON NORMALS: no JVD, regular rate, regular rhythm, S1 normal heart sound present, S2 normal heart sound present, No gallops present (Cardio), No clicks present (Cardio), No murmurs present (Cardio) and No rub (Cardio) RATE: regular rate RHYTHM: regular rhythm HEART SOUNDS: S1 normal heart sound present and S2 normal heart sound present GI: COMMON NORMALS: Normal to inspection, nondistended, normoactive bowel sounds present, Soft to palpation, non-tender, No hepatosplenomegaly present and no masses PALPATION: Yes Soft to palpation and Yes No hepatosplenomegaly present Neuro: COMMON NORMALS: patient oriented x3 SENSORIUM/ORIENTATION: Yes alert Course Vital Signs: Vital signs: Vital Signs Temperature 98.6 F 07/28/24 17:56 Pulse Rate 80 07/28/24 21:32 Respiratory Rate 18 07/28/24 21:32 Blood Pressure 113/74 07/28/24 21:00 Pulse Oximetry 95 07/28/24 21:32 Oxygen Delivery Me thod Nasal Cannula 07/28/24 21:32 Oxygen Flow Rate 2 07/28/24 21:32 MDM - SOB/Dyspnea Medical Decision Making Patient given 2 breathing treatments, as well as lab work and chest x-ray, all which was benign. 3 breathing treatments did help she also got 60 mg of oral prednisone. Patient be discharged home on albuterol and prednisone. Medical Records I reviewed the patient's medical records. Lab Data I reviewed the patient's lab results. 07/28/24 18:14 07/28/24 18:14 Labs/Radiology: Radiology Impressions Chest X-Ray 07/28/24 18:00 IMPRESSION: No acute findings. Laboratory Results WBC 8.92 10^3/uL (3.29-11.43) 07/28/24 18:14 RBC 4.63 10^6/uL (3.85-5.65) 07/28/24 18:14 Hgb 13.00 g/dL (11.27-16.99) 07/28/24 18:14 Hct 42.5 % (36-47) 07/28/24 18:14 MCV 91.8 fl (85-98) 07/28/24 18:14 MCH 28.1 pg (27-33) 07/28/24 18:14 MCHC 30.6 g/dL (30-55) 07/28/24 18:14 RDW 14.0 % (12.1-15.1) 07/28/24 18:14 Plt Count 201 10^3/cmm (157-399) 07/28/24 18:14 MPV 10.5 fL (7.4-10.4) H 07/28/24 18:14 Neut % (Auto) 61.9 % 07/28/24 18:14 Lymph % (Auto) 26.8 % 07/28/24 18:14 [place] % (Auto) 7.5 % 07/28/24 18:14 Eos % (Auto) 1.8 % 07/28/24 18:14 Baso % (Auto) 1.0 % 07/28/24 18:14 Neut # (Auto) 5.52 10^3/uL (1.8-7.7) 07/28/24 18:14 Lymph # (Auto) 2.4 10^3/uL (0.8-4.8) 07/28/24 18:14 [place] # (Auto) 0.7 10^3/uL (0.2-0.9) 07/28/24 18:14 Eos # (Auto) 0.2 10^3/uL (0.0-0.8) 07/28/24 18:14 Baso # (Auto) 0.1 10^3/uL (0.0-0.1) 07/28/24 18:14 Nucleated RBC % (auto) 0.2 % 07/28/24 18:14 Nucleated RBCs # 0.0 /100WBC 07/28/24 18:14 PT 12.80 SECONDS (12.1-14.9) 07/28/24 19:07 INR 0.94 (0.8-1.2) 07/28/24 19:07 Sodium 136 mmol/L (136-145) 07/28/24 18:14 Potassium 3.4 mmol/L (3.5-5.1) L 07/28/24 18:14 Chloride 101 mmol/L (98-107) 07/28/24 18:14 Carbon Dioxide 20 mmol/L (22-29) L 07/28/24 18:14 Anion Gap 18.4 (5-19) 07/28/24 18:14 BUN 6 mg/dL (8-23) L 07/28/24 18:14 Creatinine 0.7 mg/dL (0.5-0.9) 07/28/24 18:14 GFR Calculation 84.2 mL/min (90-130) L 07/28/24 18:14 Glucose 111 mg/dL (65-115) 07/28/24 18:14 Calculated Osmolality 280 mOsm/kg (285-295) L 07/28/24 18:14 Calcium 9.1 mg/dL (8.5-10.5) 07/28/24 18:14 Total Bilirubin 0.2 mg/dL (0.15-1.2) 07/28/24 18:14 AST 12 U/L (0-32) 07/28/24 18:14 ALT 7 U/L (0-33) 07/28/24 18:14 Alkaline Phosphatase 69 U/L (35-105) 07/28/24 18:14 Troponin T Baseline 8 ng/L (0-10) 07/28/24 18:14 Troponin T 120 Minute 8.86 ng/L (0-10) 07/28/24 20:22 Delta Troponin T 0.86 ABS# (0-10) 07/28/24 20:22 Total Protein 6.5 g/dL (6.6-8.7) L 07/28/24 18:14 Albumin 4.1 g/dL (3.5-5.2) 07/28/24 18:14 Globulin 2.4 g/dL (1.3-4.6) 07/28/24 18:14 Coronavirus (PCR) Negative (Negative) 07/28/24 19:27 Influenza A (PCR) Negative (Negative) 07/28/24 19:27 Influenza Type B (PCR) Negative (Negative) 07/28/24 19:27 RSV (PCR) Negative (Negative) 07/28/24 19:27 All radiology interpretation(s) finalized by discharge Discharge Plan Discharge Patient Disposition: Home Clinical Impression: Asthma with exacerbation Qualifiers: Asthma severity: unspecified severity Asthma persistence: unspecified Qualified Code(s): J45.901 - Unspecified asthma with (acute) exacerbation Condition: Stable Prescriptions: New prednisone 50 mg tablet 50 mg PO DAILY Qty: 5 0RF albuterol sulfate 90 mcg/actuation HFA aerosol inhaler 2 inh inhalation Q6H PRN (Reason: shortness of breath or wheezing) Qty: 8.5 0RF No Action omeprazole 20 mg capsule,delayed release(DR/EC) 20 mg PO QAM alendronate 10 mg tablet 10 mg PO QAM olanzapine [Zyprexa] 20 mg tablet 20 mg PO DAILY polyethylene glycol 3350 [Miralax] 17 gram/dose powder 17 g PO DAILY 14 Days Qty: 238 0RF paroxetine HCl 30 mg tablet PO topiramate 200 mg tablet 200 mg PO DAILY albuterol sulfate 90 mcg/actuation HFA aerosol inhaler 2 inh inhalation QID Qty: 8.5 3RF (DME) blood-glucose meter [Accu-Chek Jennifer Plus Meter] Misc See Rx Instructions .Route Qty: 1 0RF Rx Instructions: As directed (DME) lancets [Lancets, Super Thin] Misc See Rx Instructions .Route Qty: 200 0RF Rx Instructions: As directed atorvastatin 80 mg Tablet 80 mg PO QPM sumatriptan succinate 50 mg tablet 50 mg PO DAILY PRN (Reason: Headache) trazodone 100 mg tablet 100 mg PO BEDTIME losartan 25 mg tablet 12.5 mg PO DAILY docusate sodium 100 mg capsule 200 mg PO BID PRN (Reason: Constipation) oxybutynin chloride 5 mg tablet extended release 24hr 5 mg PO DAILY cholecalciferol (vitamin D3) 50 mcg (2,000 unit) tablet 50 mcg PO DAILY Discharge Orders: Discharge ED (Routine); Ordered 07/28/24 Ordered By: Manish Kirk Referrals: Taty Martínez MD [Primary Care Provider] - 1 week Patient Instructions: Asthma - Adult Activity Restrictions/Additional Instructions: 2 prescriptions have been sent to your pharmacy 1 for an albuterol inhaler to use when you are short of breath or wheezing and 1 for prednisone to use every day for the next 5 days. Please take them as directed. Coding Level of Care Code ED Emissions Testing Technician for Halle Ibrahim
[2024-07-28 18:57] LABS: Alanine Aminotransferase 7 U/L (0-33); Albumin Level 4.1 g/dL (3.5-5.2); Alkaline Phosphatase 69 U/L (35-105); Aspartate Amino Transferase 12 U/L (0-32); Blood Urea Nitrogen 6 mg/dL (8-23); Calcium 9.1 mg/dL (8.5-10.5); Carbon Dioxide 20 mmol/L (22-29); Chloride 101 mmol/L (98-107); Creatinine Clr Calc Pharmacy 87.0911; Globulin 2.4 g/dL (1.3-4.6); Glomerular Filtration Rate 84.2 mL/min (90-130); Glucose 111 mg/dL (65-115); Osmolality Calculated 280 mOsm/kg (285-295); Sodium 136 mmol/L (136-145); Total Bilirubin 0.2 mg/dL (0.15-1.2); Total Protein 6.5 g/dL (6.6-8.7)
[2024-07-28 19:01] LABS: Basophils # 0.1 10^3/uL (0.0-0.1); Eosinophils # 0.2 10^3/uL (0.0-0.8); Eosinophils % 1.8 %; Hematocrit 42.5 % (36-47); Lymphocytes # 2.4 10^3/uL (0.8-4.8); Lymphocytes % 26.8 %; Mean Corpuscular HGB Conc 30.6 g/dL (30-55); Mean Corpuscular Hemoglobin 28.1 pg (27-33); Mean Corpuscular Volume 91.8 fl (85-98); Mean Platelet Volume 10.5 fL (7.4-10.4); Monocytes # 0.7 10^3/uL (0.2-0.9); Monocytes % 7.5 %; Neutrophils # 5.52 10^3/uL (1.8-7.7); Neutrophils % 61.9 %; Nucleated Red Blood Cells % 0.2 %; Platelet Count 201 10^3/cmm (157-399); Red Blood Count 4.63 10^6/uL (3.85-5.65); White Blood Count 8.92 10^3/uL (3.29-11.43)
[2024-07-28 19:05] LABS: Slide Review Slide Review Perform
[2024-07-28 19:07] LABS: Anion Gap 18.4 (5-19); Potassium 3.4 mmol/L (3.5-5.1)
[2024-07-28 19:12] LABS: Troponin(5th) Baseline 8 ng/L (0-10)
[2024-07-28] MEDS: ipratropium-albuterol 3 mL Neb INHALATION (19:17)
[2024-07-28 19:45] LABS: INR 0.94 (0.8-1.2)
--- NOTE | 2024-07-28 20:01 | ECG_ITS ---
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
[2024-07-28 20:17] LABS: Covid PCR NEGATIVE (Negative); Influenza A NEGATIVE (Negative); Influenza B NEGATIVE (Negative); Respiratory Syncytial Virus Ce NEGATIVE (Negative)
[2024-07-28 20:50] LABS: Troponin 5 2HR 8.86 ng/L (0-10); Troponin 5 2HR Delta 0.86 ABS# (0-10)
[2024-07-28] MEDS: predniSONE 20 mg Tablet 60 MG PO (21:24)
[2024-07-28] MEDS: albuterol 2.5 mg/3 mL Neb INHALATION (21:31)
== END 2024-07-28 22:00 | disposition home or self-care (01) ==
PROVIDERS: Emergency Provider Emergency Medicine; PCP Family Medicine
DX: J45.901 Unspecified asthma with (acute) exacerbation (principal); Z11.52 Encounter for screening for COVID-19; I10 Essential (primary) hypertension
CPT/HCPCS: 0241U; 36415; 71045; 80053; 84484; 85025; 85610; 93005; 94640; 99285; J7512; J7613

== ENCOUNTER → 2024-08-13 08:31 | Outpatient (BNVA) | payer OTHER, SELFPAY | PROVIDERS: PCP Family Medicine; Visit Provider Specialist | DX: G24.4 Idiopathic orofacial dystonia (principal); R55 Syncope and collapse; G43.711 Chronic migraine without aura, intractable, with status migrainosus | CPT/HCPCS: 64612; J0585 ==

== ENCOUNTER 2024-09-03 10:16 | Emergency (ER) | payer OTHER, SELFPAY ==
[2024-09-03 10:23] VITALS: BP 150/88; PULSE 82; RESP 16; TEMP 36.5; O2SAT 93; BMI 30.9
--- NOTE | 2024-09-03 10:32 | ED_ITS ---
HPI - Back Pain/Injury 2 General: Chief Complaint: Back Pain/Injury Stated Complaint: pain in back, kidney issues Time Seen by Provider: 09/03/24 10:18 Source: patient and family Mode of arrival: ambulatory Limitations: no limitations History of Present Illness: Patient is a 63-year-old female who presents to ED today along with presumably her daughter for complaints of kidney pain . She states she has not had pain across her lower back over the past 3 days. No known injury or trauma. She is not having any radicular discomfort down into her hips or lower extremities. She does feel like she is urinating more frequently but does not complain of dysuria, cloudy, or odorous urine. No history of kidney problems or pyelonephritis. She is not running fevers. No nausea or vomiting. She denies abdominal or chest pain. MD elicited complaint: back pain Onset (ago): day(s) Timing: constant Severity: moderate Similar Symptoms Previously: No Location: right lower back and left lower back Radiation: none Exacerbating factors: movement Relieving factors: none Associated symptoms: Reports no associated symptoms; Deny abdominal pain, chills, change in bowel habits, dysuria, fatigue, fever(s), nausea, urinary urgency or vomiting Work related injury: No Related Data Home Medications Medication Instructions Recorded Confirmed alendronate 10 mg tablet 10 mg PO QAM 04/21/20 09/03/24 olanzapine 20 mg tablet (Zyprexa) 20 mg PO DAILY 04/21/20 09/03/24 omeprazole 20 mg capsule,delayed 20 mg PO QAM 04/21/20 09/03/24 release topiramate 200 mg tablet 200 mg PO DAILY 07/10/21 09/03/24 atorvastatin 80 mg tablet 40 mg PO QPM 12/12/23 09/03/24 cholecalciferol (vitamin D3) 50 50 mcg PO DAILY 12/12/23 09/03/24 mcg (2,000 unit) tablet docusate sodium 100 mg capsule 200 mg PO BID PRN Constipation 12/12/23 09/03/24 losartan 25 mg tablet 12.5 mg PO DAILY 12/12/23 09/03/24 oxybutynin chloride 5 mg 5 mg PO DAILY 12/12/23 09/03/24 tablet,extended release 24 hr paroxetine HCl 30 mg tablet 30 mg PO DAILY 07/09/24 09/03/24 Previous Rx's Medication Instructions Recorded blood-glucose meter (Accu-Chek #1 ea 07/16/21 Jennifer Plus Meter) lancets (Lancets, Super Thin) #200 ea 07/16/21 albuterol sulfate 90 mcg/actuation 2 inh inhalation Q6H PRN shortness 07/28/24 aerosol inhaler of breath or wheezing #8.5 grams cyclobenzaprine 10 mg tablet 10 mg PO TID #14 tabs 09/03/24 methylprednisolone 4 mg tablets in See Rx Instructions PO .COMPLEX 09/03/24 a dose pack (Medrol (Kale)) #21 ea Allergies Allergy/AdvReac Type Severity Reaction Status Date / Time Cephalosporins Allergy ALGY-Anaphy Verified 08/13/24 09:07 laxis Penicillins Allergy ALGY-Anaphy Verified 08/13/24 09:07 laxis Review of Systems 2 Const: Denies: fever(s), chills, body aches, fatigue or malaise Card: Denies: chest pain Resp: Denies: dyspnea GI: Denies: abdominal pain, nausea, vomiting, diarrhea or change in bowel habits : Reports: urinary frequency; Denies: flank pain, difficulty voiding, dysuria, urinary urgency, urinary hesitancy, dribbling or pelvic pain Musc: Reports: back pain; Denies: neck pain, extremity pain, extremity swelling, joint pain or joint swelling Skin/Breast: Denies: rash Neuro: Denies: headache(s), numbness in extremities, weakness in extremities, sensory changes or dizziness PFSH ED 2 PFSH: Medical History Chronic migraine Hypertension GERD (gastroesophageal reflux disease) Surgical History History of temporal artery biopsy (09/11/20) left History of mandibular surgery H/O lumpectomy left breast History of appendectomy H/O abdominoplasty Hx of tubal ligation H/O esophagogastroduodenoscopy yrs ago H/O colonoscopy 2018 Family History Mother Bleeding disorder hemophillia CAD (coronary artery disease) Father Cancer pancreatic Other Hypertension Denies family history of Anesthesia complication Social History Smoking and tobacco/nicotine status: never used tobacco/nicotine Alcohol intake: never Substance/Drug Use: never Household members: family Marital status: Single Current occupational status: disabled Physical Exam 2 Const: COMMON NORMALS: no acute distress, patient oriented x3, no limitations, alert and well nourished GENERAL APPEARANCE: cooperative Resp: COMMON NORMALS: normal respiratory effort and clear to auscultation bilaterally AUSCULTATION: clear to auscultation bilaterally Cardio: COMMON NORMALS: regular rate and regular rhythm RATE: regular rate RHYTHM: regular rhythm GI: COMMON NORMALS: Normal to inspection, nondistended, normoactive bowel sounds present, Soft to palpation, non-tender, No hepatosplenomegaly present and no masses PALPATION: Yes Soft to palpation and Yes No hepatosplenomegaly present : COMMON NORMALS: Yes no CVA tenderness BLADDER/KIDNEY EXAM: Yes no CVA tenderness Back/Pelvis: COMMON NORMALS: no CVA tenderness, thoracic and lumbar spine normal to inspection, no thoracic nor lumbar tenderness, thoraco-lumbar ROM normal and straight leg raise negative bilaterally THORACIC SPINE/UPPER BACK: Yes normal to inspection, Yes thoracic ROM normal, No thoracic spinal tenderness and No paraspinal muscle tenderness LUMBAR SPINE/LOWER BACK: Yes pain with ROM, No lumbar spinal tenderness, Yes paraspinal muscle tenderness Lumbar paraspinal muscle tenderness: bilateral and Yes straight leg raise negative bilaterally PELVIS: Yes buttocks normal and No sciatic notch tenderness S ACROILIAC JOINTS: Yes SI joints normal SACRUM: no tenderness COCCYX: no tenderness Extremity: GENERAL: Yes normal exam except as noted Neuro: COMMON NORMALS: patient oriented x3, moves all extremities, no focal motor deficits, no sensory deficits noted and gait normal S ENSORIUM/ORIENTATION: Yes alert Skin: COMMON NORMALS: no rashes or lesions noted GENERAL SKIN EXAM: no rashes or lesions noted Course 2 Vital Signs: Vital signs: Vital Signs Temperature 97.7 F 09/03/24 10:23 Pulse Rate 82 09/03/24 10:23 Respiratory Rate 16 09/03/24 10:23 Blood Pressure 150/88 09/03/24 10:23 Pulse Oximetry 93 09/03/24 10:23 Oxygen Delivery Me thod Room Air 09/03/24 10:23 MDM - Back Pain/Injury Medical Decision Making Patient has no CVA tenderness on exam. Pain is all reproducible to her lower back. Vital signs are stable. Her blood work overall is unremarkable. UA without any convincing evidence for infection. She is not complaining of dysuria, cloudy, or odorous urine. Pain is alleviated here with Toradol and Norflex. Suspect this is musculoskeletal. Will have her continue anti- inflammatory use at home and will add steroids and muscle relaxers. Recommend follow-up with primary care next week. Return ED precautions given. Medical Records I reviewed the patient's medical records. Labs I reviewed the patient's lab results. 09/03/24 10:45 09/03/24 10:45 Laboratory Results WBC 7.31 10^3/uL (3.29-11.43) 09/03/24 10:45 RBC 4.60 10^6/uL (3.85-5.65) 09/03/24 10:45 Hgb 13.10 g/dL (11.27-16.99) 09/03/24 10:45 Hct 41.6 % (36-47) 09/03/24 10:45 MCV 90.4 fl (85-98) 09/03/24 10:45 MCH 28.5 pg (27-33) 09/03/24 10:45 MCHC 31.5 g/dL (30-55) 09/03/24 10:45 RDW 14.0 % (12.1-15.1) 09/03/24 10:45 Plt Count 211 10^3/cmm (157-399) 09/03/24 10:45 MPV 10.4 fL (7.4-10.4) 09/03/24 10:45 Neut % (Auto) 65.5 % 09/03/24 10:45 Lymph % (Auto) 25.3 % 09/03/24 10:45 Ceiba % (Auto) 7.1 % 09/03/24 10:45 Eos % (Auto) 1.1 % 09/03/24 10:45 Baso % (Auto) 0.5 % 09/03/24 10:45 Neut # (Auto) 4.78 10^3/uL (1.8-7.7) 09/03/24 10:45 Lymph # (Auto) 1.9 10^3/uL (0.8-4.8) 09/03/24 10:45 Ceiba # (Auto) 0.5 10^3/uL (0.2-0.9) 09/03/24 10:45 Eos # (Auto) 0.1 10^3/uL (0.0-0.8) 09/03/24 10:45 Baso # (Auto) 0.0 10^3/uL (0.0-0.1) 09/03/24 10:45 Nucleated RBC % (auto) 0 % 09/03/24 10:45 Nucleated RBCs # 0.0 /100WBC 09/03/24 10:45 Sodium 142 mmol/L (136-145) 09/03/24 10:45 Potassium 3.8 mmol/L (3.5-5.1) 09/03/24 10:45 Chloride 107 mmol/L (98-107) 09/03/24 10:45 Carbon Dioxide 23 mmol/L (22-29) 09/03/24 10:45 Anion Gap 15.8 (5-19) 09/03/24 10:45 BUN 9 mg/dL (8-23) 09/03/24 10:45 Creatinine 0.8 mg/dL (0.5-0.9) 09/03/24 10:45 Glucose 102 mg/dL (65-115) 09/03/24 10:45 Calculated Osmolality 293 mOsm/kg (285-295) 09/03/24 10:45 Calcium 9.6 mg/dL (8.5-10.5) 09/03/24 10:45 Total Bilirubin 0.2 mg/dL (0.15-1.2) 09/03/24 10:45 AST 13 U/L (0-32) 09/03/24 10:45 ALT 8 U/L (0-33) 09/03/24 10:45 Alkaline Phosphatase 78 U/L (35-105) 09/03/24 10:45 Total Protein 7.3 g/dL (6.6-8.7) 09/03/24 10:45 Albumin 4.4 g/dL (3.5-5.2) 09/03/24 10:45 Globulin 2.9 g/dL (1.3-4.6) 09/03/24 10:45 Urine Color Yellow (Yellow) 09/03/24 10:37 Urine Appearance Clear (CLEAR) 09/03/24 10:37 Urine pH 6.5 (5-7) 09/03/24 10:37 Ur Specific [place] 1.007 (1.005-1.030) 09/03/24 10:37 Urine Protein Negative (Negative) 09/03/24 10:37 Urine Glucose (UA) Negative (Normal) 09/03/24 10:37 Urine Ketones Negative (Negative) 09/03/24 10:37 Urine Blood Negative (Negative) 09/03/24 10:37 Urine Nitrate Negative (Negative) 09/03/24 10:37 Urine Bilirubin Negative (Negative) 09/03/24 10:37 Urine Urobilinogen 1.0 mg/dL (Negative) 09/03/24 10:37 Ur Leukocyte Esterase 1+ (Negative) A 09/03/24 10:37 Urine RBC 0-2 /hpf (0-2) 09/03/24 10:37 Urine WBC 0-5 /hpf (0-5) 09/03/24 10:37 Ur Squamous Epith Cells 0-5 /hpf (0-5) 09/03/24 10:37 Amorphous Sediment Not Reportable 09/03/24 10:37 Urine Bacteria None seen /hpf (NONE) 09/03/24 10:37 Hyaline Casts 0-4 /lpf H 09/03/24 10:37 No radiology studies performed this visit Discharge Plan Discharge Patient Disposition: Home Clinical Impression: Lower back pain Qualifiers: Chronicity: acute Back pain laterality: bilateral Sciatica presence: without sciatica Qualified Code(s): M54.50 - Low back pain, unspecified Condition: Stable Prescriptions: New cyclobenzaprine 10 mg tablet 10 mg PO TID Qty: 14 0RF methylprednisolone [Medrol (Kale)] 4 mg tablets,dose pack See Rx Instructions .ROUTE .COMPLEX Qty: 21 0RF Rx Instructions: orally per package directions No Action omeprazole 20 mg capsule,delayed release(DR/EC) 20 mg PO QAM alendronate 10 mg tablet 10 mg PO QAM olanzapine [Zyprexa] 20 mg tablet 20 mg PO DAILY paroxetine HCl 30 mg tablet 30 mg PO DAILY topiramate 200 mg tablet 200 mg PO DAILY (DME) blood-glucose meter [Accu-Chek Jennifer Plus Meter] Misc See Rx Instructions .Route Qty: 1 0RF Rx Instructions: As directed (DME) lancets [Lancets, Super Thin] Misc See Rx Instructions .Route Qty: 200 0RF Rx Instructions: As directed albuterol sulfate 90 mcg/actuation HFA aerosol inhaler 2 inh inhalation Q6H PRN (Reason: shortness of breath or wheezing) Qty: 8.5 0RF atorvastatin 80 mg Tablet 40 mg PO QPM losartan 25 mg tablet 12.5 mg PO DAILY docusate sodium 100 mg capsule 200 mg PO BID PRN (Reason: Constipation) oxybutynin chloride 5 mg tablet extended release 24hr 5 mg PO DAILY cholecalciferol (vitamin D3) 50 mcg (2,000 unit) tablet 50 mcg PO DAILY Discharge Orders: Discharge ED (Routine); Ordered 09/03/24 Ordered By: Roselyn Randhawa Referrals: Taty Martínez MD [Primary Care Provider] - Activity Restrictions/Additional Instructions: As we discussed he may continue [id number] anti-inflammatory such as ibuprofen or naproxen in addition to the steroids and muscle relaxers prescribed to you today. Please follow-up with primary care next week if symptoms do not seem to be improving. You need to return to the emergency department for worsening back pain, abdominal pain, repetitive episodes of vomiting, fevers, generally feeling worse or unwell, or any other concerns you may have. Coding Level of Care Code ED Flight Dispatcher for Halle Ibrahim
--- NOTE | 2024-09-03 10:38 | PC.PHAR ---
patient is [facility] sent fax at [phone]
[2024-09-03] MEDS: orphenadrine 30 mg/mL Inj 2 mL 60 MG IM (10:49)
[2024-09-03] MEDS: ketorolac 30 mg/mL INJ IM (10:50)
[2024-09-03 10:53] LABS: Bilirubin Urine Negative (Negative); Blood Urine Negative (Negative); Glucose Urine UA Negative (Normal); Ketones Urine Negative (Negative); Leukocyte Esterase Urine 1+ (Negative); Nitrate Urine Negative (Negative); Protein Urine Negative (Negative); Specific Gravity, Urine 1.007 (1.005-1.030); Urine Appearance Clear (CLEAR); Urine Color Yellow (Yellow); pH Urine 6.5 (5-7)
[2024-09-03 10:54] LABS: Basophils % 0.5 %; Eosinophils # 0.1 10^3/uL (0.0-0.8); Eosinophils % 1.1 %; Hematocrit 41.6 % (36-47); Lymphocytes # 1.9 10^3/uL (0.8-4.8); Lymphocytes % 25.3 %; Mean Corpuscular HGB Conc 31.5 g/dL (30-55); Mean Corpuscular Hemoglobin 28.5 pg (27-33); Mean Corpuscular Volume 90.4 fl (85-98); Mean Platelet Volume 10.4 fL (7.4-10.4); Monocytes # 0.5 10^3/uL (0.2-0.9); Monocytes % 7.1 %; Neutrophils # 4.78 10^3/uL (1.8-7.7); Neutrophils % 65.5 %; Nucleated Red Blood Cells % 0 %; Platelet Count 211 10^3/cmm (157-399); White Blood Count 7.31 10^3/uL (3.29-11.43)
[2024-09-03 10:58] LABS: Add Urine Microscopic? YES; Bacteria Urine None Seen /hpf; Hyaline Casts Urine 0-4 /lpf; RBC Urine 0-2 /hpf (0-2); Squamous Epithelial Cell Urine 0-5 /hpf (0-5); WBC Urine 0-5 /hpf (0-5)
[2024-09-03 11:02] LABS: Add Urine Culture? No
[2024-09-03 11:33] VITALS: BP 112/85; PULSE 79; O2SAT 91
[2024-09-03 11:34] LABS: Alanine Aminotransferase 8 U/L (0-33); Albumin Level 4.4 g/dL (3.5-5.2); Alkaline Phosphatase 78 U/L (35-105); Anion Gap 15.8 (5-19); Aspartate Amino Transferase 13 U/L (0-32); Blood Urea Nitrogen 9 mg/dL (8-23); Calcium 9.6 mg/dL (8.5-10.5); Carbon Dioxide 23 mmol/L (22-29); Chloride 107 mmol/L (98-107); Creatinine Clr Calc Pharmacy 76.2047; Globulin 2.9 g/dL (1.3-4.6); Glomerular Filtration Rate 72.2 mL/min (90-130); Glucose 102 mg/dL (65-115); Osmolality Calculated 293 mOsm/kg (285-295); Potassium 3.8 mmol/L (3.5-5.1); Sodium 142 mmol/L (136-145); Total Bilirubin 0.2 mg/dL (0.15-1.2); Total Protein 7.3 g/dL (6.6-8.7)
[2024-09-03 11:43] VITALS: BP 112/85; PULSE 76; O2SAT 91
== END 2024-09-03 11:46 | disposition home or self-care (01) ==
PROVIDERS: Emergency Provider Physician Assistant; PCP Family Medicine
DX: M54.50 Low back pain, unspecified (principal); I10 Essential (primary) hypertension
CPT/HCPCS: 36415; 80053; 81001; 85025; 96372; 99284; J1885; J2360

== ENCOUNTER → 2024-10-08 09:03 | Outpatient (BNVA) | payer OTHER, SELFPAY | PROVIDERS: PCP Family Medicine; Visit Provider Specialist | DX: R55 Syncope and collapse; G43.711 Chronic migraine without aura, intractable, with status migrainosus; G24.4 Idiopathic orofacial dystonia | CPT/HCPCS: 64615; J0585 ==

== ENCOUNTER 2024-12-10 09:38 | Outpatient (CLI) | payer OTHER, SELFPAY ==
--- NOTE | 2024-12-10 09:48 | MM_ITS ---
WS: [id number] BILATERAL 3D TOMOSYNTHESIS DIGITAL SCREENING MAMMOGRAPHY WITH CAD CLINICAL INFORMATION: SCREENING HISTORY: Screening mammogram. No current complaints. COMPARISON: 2022 TECHNIQUE: Bilateral CC and MLO views. FINDINGS: Scattered fibroglandular densities bilaterally. No suspicious focal mass, asymmetry, calcifications, or architectural distortion. No evidence of malignancy. Incidental punctate calcifications. Vascular calcifications MM/MM scr tomosynthesis [id number] IMPRESSION: DENSITY: There are scattered areas of fibroglandular density. BI-RADS: 2 - Benign. FOLLOW UP: 1 Year Follow-up Recommend return to annual screening mammography.
== END 2024-12-10 09:39 | disposition home or self-care (01) ==
PROVIDERS: PCP Family Medicine; Visit Provider Family Medicine
DX: Z12.31 Encounter for screening mammogram for malignant neoplasm of breast (principal); R92.323 Mammographic fibroglandular density, bilateral breasts; R92.1 Mammographic calcification found on diagnostic imaging of breast
CPT/HCPCS: 77063; 77067

== ENCOUNTER → 2025-01-14 08:52 | Outpatient (BNVA) | payer OTHER, SELFPAY | PROVIDERS: PCP Family Medicine; Visit Provider Specialist | DX: R55 Syncope and collapse (principal); R07.9 Chest pain, unspecified; G43.711 Chronic migraine without aura, intractable, with status migrainosus; G24.4 Idiopathic orofacial dystonia | CPT/HCPCS: 64615; 99212; J0585; J9999 ==

== ENCOUNTER → 2025-04-14 08:31 | Outpatient (BNVA) | payer OTHER, SELFPAY | PROVIDERS: PCP Family Medicine; Visit Provider Specialist | DX: G43.711 Chronic migraine without aura, intractable, with status migrainosus (principal) | CPT/HCPCS: 64615; J0585; J9999 ==

== ENCOUNTER 2025-07-04 13:00 | Outpatient (CLI) | payer OTHER, SELFPAY ==
--- NOTE | 2025-07-04 13:06 | XR_ITS ---
WS: [id number] DEXA (DUAL ENERGY X-RAY ABSORPTIOMETRY) Bone mineral density was performed using a Vigilos machine. HISTORY: ENCOUNTER FOR OTHER SPECIFIED EXAMINATIONS COMPARISON: None available. Lumbar spine BMD (L1-L4): 1.166 g/cm2 T score: -0.1 Z score: 1.1 Total hip BMD: Left: 0.851 g/cm2. T score: -1.2 Z score: -0.3 Right: 0.827 g/cm2. T score: -1.4 Z score: -0.5 10 year probability of a major osteoporotic fracture is 10.4%. XR/XR DEXA axial skeleton* [id number] IMPRESSION: OSTEOPENIA based upon the WHO classification for females.
== END 2025-07-04 13:01 | disposition home or self-care (01) ==
LOC: RAD 13:01
PROVIDERS: PCP Family Medicine; Visit Provider Nurse Practitioner Family
DX: Z13.820 Encounter for screening for osteoporosis (principal)
CPT/HCPCS: 77080

== ENCOUNTER → 2025-07-14 14:40 | Outpatient (BNVA) | payer OTHER, SELFPAY | PROVIDERS: PCP Family Medicine; Visit Provider Specialist | DX: G43.711 Chronic migraine without aura, intractable, with status migrainosus (principal) | CPT/HCPCS: 64615; J0585; J9999 ==